=== PATIENT | male | born 1935 | race Caucasian/White ===

== ENCOUNTER 2017-04-21 12:43 | Emergency (ER) | payer MEDICARE ==
--- NOTE | 2017-04-21 12:52 | UC ---
Skin Complaint HPI - HPI Summary HPI Summary: 81 year old male presents with complains of left leg weeping wound. - History of Current Complaint Time Seen by Provider: 04/21/17 12:51 Stated Complaint: LFT LEG SKIN COMPLAINT - Allergy/Home Medications Allergies/Adverse Reactions: Allergies Allergy/AdvReac Type Severity Reaction Status Date / Time No Known Allergies Allergy Verified 01/14/16 10:23 Review of Systems Constitutional: Negative Skin: Other - left lower extremity weeping wound Eyes: Negative ENT: Negative Respiratory: Negative Cardiovascular: Negative Gastrointestinal: Negative Genitourinary: Negative Motor: Negative Neurovascular: Negative Musculoskeletal: Negative Neurological: Negative Psychological: Negative All Other Systems Reviewed And Are Negative: Yes PMH/Surg Hx/FS Hx/Imm Hx - Surgical History Surgical History: Yes Surgery Procedure, Year, and Place: cochlear implant 2001 [facility]-unsafe for mri . heart catherization 2003. TURP 2012. Hernia Type 3 Hiatal repair 1998. varicose vein stripping 1980. 2014 HYDROCEPHALUS SURGERY. shunt placement for Hydrocephalus 06-02-15 - Social History Alcohol Use: None Substance Use Type: None Smoking Status (MU): Unknown if Ever Smoked Type: Cigarettes Amount Used/How Often: LESS THEN 1 PPD, 5+ YEARS Have You Smoked in the Last Year: No When Did the Patient Quit Smoking/Using Tobacco: 1963 - Immunization History Most Recent Influenza Vaccination: 06/2015 Most Recent Tetanus Shot: WITHIN 10 YRS Most Recent Pneumonia Vaccination: 2012 Physical Exam Triage Information Reviewed: Yes Eye Exam: Normal ENT Exam: Normal Dental Exam: Normal Neck exam: Normal Neck: Positive: 1 Respiratory Exam: Normal Cardiovascular Exam: Normal Abdominal Exam: Normal Musculoskeletal Exam: Normal Neurological Exam: Normal Psychological Exam: Normal Skin: Positive: Other - left loweer extremity weeping wound Course/Dx - Diagnoses Provider Diagnoses: lower extremity weeping wound Discharge - Discharge Plan Condition: Stable Disposition: HOME Prescriptions: Cephalexin CAP* [Keflex CAP*] 500 mg PO TID #30 cap Patient Education Materials: Wound Infection (ED) Referrals: Preeti Henderson MD [Primary Care Provider] - As Soon As Possible
[2017-04-21 13:04] VITALS: BP 140/70
== END 2017-04-21 14:14 | disposition home or self-care (01) ==
LOC: UCCORT 12:43
DX: S81.802A Unspecified open wound, left lower leg, initial encounter (principal); X58.XXXA Exposure to other specified factors, initial encounter; Y92.9 Unspecified place or not applicable; Z87.891 Personal history of nicotine dependence
CPT/HCPCS: 81003; 99212; G0463

== ENCOUNTER 2017-04-23 17:40 | Emergency (ER) | payer MEDICARE ==
[2017-04-23 18:16] VITALS: BP 141/79
--- NOTE | 2017-04-23 18:59 | UC ---
Skin Complaint HPI - HPI Summary HPI Summary: Pt was seen here on 04/21/17 and was treated for weeping wound/cellulitis. pt c/ o of "wound burning" that began today after dressing change. Pt denies fever, chills, or worsening of erythema, discharge or tenderness at wound site. - History of Current Complaint Chief Complaint: UCSkin Time Seen by Provider: 04/23/17 18:38 Stated Complaint: LFT LEG RE-BANDAGE/RE-CHECK Hx Obtained From: Patient, Family/Assembler Tractor Onset/Duration: Gradual Onset, Lasting Days, Still Present Timing: Constant Onset Severity: Moderate Current Severity: Moderate Location: Discrete - left lower anterior leg, Character: Redness Aggravating: Touch, Other - unsure cause of "burning sensation" Alleviating: Unknown Associated Signs & Symptoms: Positive: Tenderness Related History: Other: - venous stasis - Allergy/Home Medications Allergies/Adverse Reactions: Allergies Allergy/AdvReac Type Severity Reaction Status Date / Time No Known Allergies Allergy Verified 04/23/17 17:54 Home Medications: Home Medications Lactobacillus [Probiotic] 1 cap PO DAILY 04/23/17 [History Confirmed 04/23/17] Review of Systems Constitutional: Negative Skin: Other - acute wound, cellulitis, weeping wound Eyes: Negative ENT: Negative Respiratory: Negative Cardiovascular: Other - history of afib, denies palpitaions or chest pain Gastrointestinal: Negative Genitourinary: Negative Motor: Other - generalized lower extremities Neurovascular: Negative Musculoskeletal: Decreased ROM - lower extremities, chronic, Edema - bilateral lower legs, chronic Neurological: Negative Psychological: Negative All Other Systems Reviewed And Are Negative: Yes PMH/Surg Hx/FS Hx/Imm Hx Previously Healthy: No Cardiovascular History: Hypertension, Atrial Fibrillation - Surgical History Surgical History: Yes Surgery Procedure, Year, and Place: cochlear implant 2001 [facility]-unsafe for mri . heart catherization 2003. TURP 2012. Hernia Type 3 Hiatal repair 1998. varicose vein stripping 1980. 2015 HYDROCEPHALUS SURGERY. shunt placement for Hydrocephalus 06-02-15 - Family History Known Family History: Positive: Cardiac Disease - Social History Occupation: Retired Lives: With Family Alcohol Use: None Substance Use Type: None Smoking Status (MU): Former Smoker Type: Cigarettes Amount Used/How Often: LESS THEN 1 PPD, 5+ YEARS Have You Smoked in the Last Year: No When Did the Patient Quit Smoking/Using Tobacco: 1962 - Immunization History Most Recent Influenza Vaccination: 06/2015 Most Recent Tetanus Shot: WITHIN 10 YRS Most Recent Pneumonia Vaccination: 2012 Physical Exam Triage Information Reviewed: Yes Appearance: Well-Appearing Vital Signs: Initial Vital Signs Temp 99.6 F 04/23/17 17:56 Pulse 107 04/23/17 17:56 Resp 20 04/23/17 17:56 BP 141/79 04/23/17 17:56 Pulse Ox 95 04/23/17 17:56 Vital Signs Reviewed: Yes Eye Exam: Normal ENT Exam: Normal ENT: Positive: Other: Neck exam: Normal Respiratory Exam: Normal Cardiovascular Exam: Other Cardiovascular: Positive: Tachycardia - pt states he goes in an Out of afib , pusle irregular,, Other: - regular irregualr rhythm Musculoskeletal Exam: Normal Neurological Exam: Normal Psychological Exam: Normal Skin Exam: Other - large "raw open wound" left lower leg, small amount of serous drainage, bilateral 1+ pitting edema. wound measure 13cm long, 9 cm wide. Course/Dx - Course Course Of Treatment: I changed the dressing and replaced the impregnated dressing of bismuth tribromonophenate bandage with vaseline gauze and covered with non stick telfa pads and wrapped in kerlix covered with gloria bandage. Pt's was given directions on how to change dressing and to keep wound care clinic appointment. Pt was instructed to go to the ER immediately if pt has c/o of fever or chills. Pt's verbalized understanding and agreed to plan of care. - Differential Diagnoses - Skin Complaint Differential Diagnoses: Cellulitis, Other - weeping wound reaction to dressing. sepsis - Diagnoses Provider Diagnoses: healing wound. reaction to dressing Discharge - Discharge Plan Condition: Stable Disposition: HOME Prescriptions: Wound Dressings [Vaseline Petrolatum Gauze] 1 pad TOPICAL DAILY #3 pad Patient Education Materials: Acute Wound Care (ED) Referrals: Preeti Henderson MD [Primary Care Provider] - As Soon As Possible Additional Instructions: Please follow up with your PCP and keep your appointment with the wound care clinic. Please change dressing daily with vaseline gauze,. Place over wound, then cover with nonstick pads, then wrap with kerlix and then cover with gloria bandage. If dressing becomes soiled, change more frequently.
== END 2017-04-23 19:09 | disposition home or self-care (01) ==
LOC: UCCORT 17:40
DX: S80.922S Unspecified superficial injury of left lower leg, sequela (principal); L03.116 Cellulitis of left lower limb; X58.XXXS Exposure to other specified factors, sequela; I87.8 Other specified disorders of veins; I10 Essential (primary) hypertension; I48.91 Unspecified atrial fibrillation; Z87.891 Personal history of nicotine dependence
CPT/HCPCS: 99212; G0463

== ENCOUNTER 2017-06-14 09:28 | Emergency (ER) | payer MEDICARE ==
--- NOTE | 2017-06-14 09:48 | UC ---
Eye Complaint HPI - HPI Summary HPI Summary: he awoke at 3am and had a snack. his vision was intact and he went back to bed at 4am. He awoke at 7am and had елена severe blurry vision. it has gradually been getting better. Last known time well was 4am. he had no other neurologic deficits such as confusion, slurred speech, facial droop. No cp or palpitations. Nothing makes it better or worse. He has a hx of cva. NO eye pain. He does use glasses. he has had cataract surgery. - History of Current Complaint Stated Complaint: BILATERAL EYE COMPLAINT Time Seen by Provider: 06/14/17 09:44 Hx Obtained From: Patient, Family/Magistrate Judge Onset/Duration: Still Present Timing: Constant Severity Initially: Severe Severity Currently: Moderate Alleviating Factor(s): Nothing Associated Signs And Symptoms: Positive: Vision Impairment Bilateral, Vision Impairment Right, Vision Impairment Left. Negative: Drainage (Clear), Drainage (Purulent), Fever, Swelling - Risk Factors Penetrating Injury Risk Factor: Negative Globe Rupture Risk Factors: Negative Acute Glaucoma Risk Factors: Negative - Allergies/Home Medications Allergies/Adverse Reactions: Allergies Allergy/AdvReac Type Severity Reaction Status Date / Time No Known Allergies Allergy Verified 04/23/17 17:54 PMH/Surg Hx/FS Hx/Imm Hx Previously Healthy: No - cva. - Surgical History Surgical History: Yes Surgery Procedure, Year, and Place: cochlear implant 2001 [facility]-unsafe for mri . heart catherization 2003. TURP 2012. Hernia Type 3 Hiatal repair 1998. varicose vein stripping 1980. 2014 HYDROCEPHALUS SURGERY. shunt placement for Hydrocephalus 06-02-15 - Family History Known Family History: Positive: Cardiac Disease - Social History Occupation: Retired Alcohol Use: None Substance Use Type: None Smoking Status (MU): Unknown if Ever Smoked Type: Cigarettes Amount Used/How Often: LESS THEN 1 PPD, 5+ YEARS Have You Smoked in the Last Year: No When Did the Patient Quit Smoking/Using Tobacco: 1962 - Immunization History Most Recent Influenza Vaccination: 06/2015 Most Recent Tetanus Shot: WITHIN 10 YRS Most Recent Pneumonia Vaccination: 2012 Review of Systems Eyes: Blurred Vision All Other Systems Reviewed And Are Negative: Yes Physical Exam Triage Information Reviewed: Yes Appearance: No Pain Distress, Well-Nourished Vital Signs Reviewed: Yes Eyes: Positive: Conjunctiva Clear. Negative: Conjunctiva Inflamed, Discharge ENT Exam: Normal Neck exam: Normal Neck: Positive: Supple, Nontender, No Lymphadenopathy Respiratory Exam: Normal Cardiovascular Exam: Other - irregular. Cardiovascular: Positive: No Murmur, Brisk Capillary Refill Abdominal Exam: Normal Musculoskeletal Exam: Normal Neurological Exam: Other - neg pronator drift. CN III-XII intact. Neurological: Positive: Alert. Negative: Lethargic, Unresponsive, Abnormal Muscle Tone Psychological: Positive: Normal Response To Family Skin Exam: Normal Eye Complaint Course/Dx - Course Course Of Treatment: likely cva. It is now 5hours and 53 min from last time well. LIkely he is not a candidate surgical intervention and definitely not a candidate for thrombolytics. He also is on eloquis. we will immediately transfer to ED and they request [facility]. - Differential Dx/Diagnosis Differential Diagnosis/HQI/PQRI: Corneal Abrasion, Detached Retina, Foreign Body , Glaucoma, Hyphema, Keratitis, Penetrating Injury, Periorbital Cellulitis, Orbital Cellulitis, Retinal Artery Occlusion, Uveitis Provider Diagnoses: vision loss. cva. - Physician Notification/Consults Discussed Patient Care With: Dr. Rosado who states they do not have neurology bedside consult. - dr godoy accepts at [place]. Discharge - Discharge Plan Condition: Guarded Disposition: TRANS HIGHER LVL OF CARE FAC
[2017-06-14 10:49] VITALS: BP 121/78
== END 2017-06-14 10:40 | disposition short-term general hospital (02) ==
LOC: UCCORT 09:28
DX: H54.7 Unspecified visual loss (principal); Z86.73 Personal history of transient ischemic attack (TIA), and cerebral infarction without residual deficits
CPT/HCPCS: 93005; 99213; G0463

== ENCOUNTER 2017-06-14 11:28 | Inpatient (IN) | payer MEDICARE ==
[2017-06-14 12:40] LABS: Hematocrit 44 % (42-52); Hemoglobin 14.8 g/dl (14.0-18.0); Mean Corpuscular HGB Conc 34 g/dl (31-36); Mean Corpuscular Hemoglobin 29 pg (27-31); Mean Corpuscular Volume 88 fL (80-94); Mean Platelet Volume 11 um3 (7.4-10.4); Red Blood Count 5.02 10^6/ul (4.0-5.4); Red Cell Distribution Width 14 % (10.5-15); White Blood Count 10.7 10^3/ul (3.5-10.8)
--- NOTE | 2017-06-14 13:12 | RAD ---
HISTORY: The visualized parenchyma resolved COMPARISONS: February 06, 2017 TECHNIQUE: Multiple contiguous axial CT scans were obtained of the head without intravenous contrast. FINDINGS: Evaluation is limited secondary to metallic streak artifact from a cochlear implant HEMORRHAGE/INFARCT: There is no hemorrhage or acute infarct. MASSES/SHIFT: There is no mass or shift. EXTRA-AXIAL SPACES: There are no extra-axial fluid collections. SULCI AND VENTRICLES: The left frontal ventricular catheter is noted within the body of the left lateral ventricle. There is mild stable ventriculomegaly. CEREBRUM: There is encephalomalacia of the left periatrial white matter, stable. BRAINSTEM: There are no focal parenchymal abnormalities. CEREBELLUM: There are no focal parenchymal abnormalities. VESSELS: The vessels are grossly normal. PARANASAL SINUSES: The paranasal sinuses are clear. ORBITS: The orbits are unremarkable. BONES AND SOFT TISSUE: The patient is status post right mastoidectomy. A cochlear implant is noted. OTHER: None IMPRESSION: NO ACUTE INTRACRANIAL PATHOLOGY. NO SIGNAL CHANGE COMPARED TO FEBRUARY 06, 2017
[2017-06-14 13:16] LABS: Albumin 3.8 g/dL (3.2-5.2); BUN/Creatinine Ratio 22.5 (8-20); Calcium 9.9 mg/dL (8.6-10.3); EGFR African American 105.8 (>60); EGFR Non-African American 82.2 (>60); Globulin 2.9 g/dL (2-4); Potassium 3.4 mmol/L (3.5-5.0); Total Bilirubin 0.4 mg/dL (0.2-1.0); Total Protein 6.7 g/dL (6.4-8.9)
[2017-06-14 13:21] LABS: Urine Bacteria Absent (Absent)
[2017-06-14 13:22] LABS: Urine Bilirubin Negative (Negative); Urine Glucose 3+(>=500 mg/dL) (Negative); Urine Nitrite Negative (Negative)
[2017-06-14] MEDS ORDERED: Labetalol IV* 5 MG/ML 20 ML VIAL IV PUSH PRN (14:20)
[2017-06-14] MEDS ORDERED: Iodixanol* (CONTRAST) 320 MG/ML 100 ML SDV IV ONE (14:27)
[2017-06-14] MEDS: Aspirin EC Low Dose* 81 MG TAB.EC PO SCH (14:38)
[2017-06-14] MEDS ORDERED: Ondansetron INJ* 2 MG/ML VIAL IV PRN (15:10)
[2017-06-14] MEDS ORDERED: Dextrose 50% Syringe 50 ML* 25 GM/50 ML SYRINGE IV PUSH PRN (15:10)
[2017-06-14] MEDS ORDERED: ALPRAZolam TAB* 0.25 MG PO PRN (15:11)
--- NOTE | 2017-06-14 15:25 | ED ---
Manda Chong Alfonso, scribed for Erin Ritter MD on 06/14/17 at 1145 . Neurological HPI - HPI Summary HPI Summary: This patient is an 82 year old M BIBA to [facility] accompanied by son and with a chief complaint of a FND since 0700. He woke at 0300 to use the restroom , and felt normal. At 0700 he was unable to see anything visually for approximately an hour. He is currently able to see. The patient rates the pain 0 /10 in severity. Symptoms aggravated by nothing. Symptoms alleviated by spontaneous resolution. Son reports bilateral UE pain. Son denies slurred speech , and weakness. PMHx includes cochlear implant, HTN, HLD, and DM. - History of Current Complaint Stated Complaint: STROKE LIKE SYMPTOMS Time Seen by Provider: 06/14/17 11:34 Hx Obtained From: Patient, Family/Weatherseal Technician - Son Onset/Duration: Sudden Onset, Started hours ago, Resolved Timing: Constant Current Severity: None Pain Intensity: 0 Pain Scale Used: 0-10 Numeric Character: Other: - bilateral UE pain. Son denies slurred speech, and weakness. Aggravating: Nothing Alleviating: Spontanious Resolution - Additional Pertinent History Primary Care Physician: [id number] - Allergy/Home Medications Allergies/Adverse Reactions: Allergies Allergy/AdvReac Type Severity Reaction Status Date / Time No Known Allergies Allergy Verified 06/14/17 11:41 PMH/Surg Hx/FS Hx/Imm Hx Endocrine/Hematology History: Reports: Hx Diabetes Denies: Hx Thyroid Disease Cardiovascular History: Reports: Hx Hypercholesterolemia, Hx Hypertension, Hx Peripheral Vascular Disease, Other Cardiovascular Problems/Disorders - heart cath 2003 Denies: Hx Congestive Heart Failure, Hx Pacemaker/ICD Respiratory History: Reports: Hx Sleep Apnea Denies: Hx Asthma, Hx Chronic Obstructive Pulmonary Disease (COPD) GI History: Reports: Hx Hiatal Hernia - TYPE 3 , SURGERY 1998 Denies: Hx Ulcer History: Reports: Hx Benign Prostatic Hyperplasia, Other Problems/ Disorders - INCONTINENCE URINE TURP Denies: Hx Renal Disease Musculoskeletal History: Reports: Hx Arthritis, Other Musculoskeletal History - Tremors Sensory History: Reports: Hx Contacts or Glasses, Hx Deafness - cochlear implant , Hx Hearing Aid - cochlear implant, Hx Hearing Problem Denies: Hx Cataracts, Hx Eye Injury, Hx Eye Prosthesis, Hx Glaucoma, Hx Legally Blind, Hx Macular Degeneration, Hx Vision Problem, Other Sensory Impairments Opthamlomology History: Reports: Hx Contacts or Glasses Denies: Hx Cataracts, Hx Eye Injury, Hx Eye Prosthesis, Hx Glaucoma, Hx Legally Blind, Hx Macular Degeneration, Hx Vision Problem, Other Sensory Impairments Neurological History: Reports: Hx Dementia, Other Neuro Impairments/Disorders - GAIT DISTURBANCE, ESSENTIAL TREMOR, INHP NORMAL PRESSURE HYDROCEPHALUS. Psychiatric History: Denies: Hx Anxiety, Hx Depression, Hx Panic Disorder - Surgical History Surgery Procedure, Year, and Place: cochlear implant 2001 [facility]-unsafe for mri . heart catherization 2003. TURP 2012. Hernia Type 3 Hiatal repair 1998. varicose vein stripping 1980. 2015 HYDROCEPHALUS SURGERY. shunt placement for Hydrocephalus 06-02-15 Hx Anesthesia Reactions: No Infectious Disease History: No Infectious Disease History: Denies: Hx Hepatitis, Hx Human Immunodeficiency Virus (HIV), Traveled Outside the [place] in Last 30 Days - Family History Known Family History: Positive: Cardiac Disease, Diabetes - Social History Alcohol Use: None Substance Use Type: Reports: None Smoking Status (MU): Unknown if Ever Smoked Type: Cigarettes Amount Used/How Often: LESS THEN 1 PPD, 5+ YEARS Have You Smoked in the Last Year: No Review of Systems Positive: Other - Bilateral UE pain Neurological: Other - FND (vision loss); negative slurred speech and weakness All Other Systems Reviewed And Are Negative: Yes Physical Exam Triage Information Reviewed: Yes Vital Signs On Initial Exam: Initial Vitals Temp Pulse Resp BP Pulse Ox 96.8 F 72 15 136/71 97 06/14/17 11:35 06/14/17 11:35 06/14/17 11:35 06/14/17 11:35 06/14/17 11:35 Vital Signs Reviewed: Yes Appearance: Positive: Well-Appearing, No Pain Distress Skin: Positive: Warm, Skin Color Reflects Adequate Perfusion, Dry, Other - A few very superficial ulcers and one large superficial well healing 5 cm in circumference ulcer at lower extremities. Eyes: Positive: EOMI, FRANCO ENT: Positive: Pharynx normal, TMs normal Neck: Positive: Supple, Nontender Respiratory/Lung Sounds: Positive: Clear to Auscultation, Breath Sounds Present. Negative: Rales, Rhonchi, Wheezes Cardiovascular: Positive: RRR, Other - No gallop. Negative: Murmur, Rub Abdomen Description: Positive: Nontender, Soft, Other: - No rebound. Negative: Distended, Guarding Bowel Sounds: Positive: Present Musculoskeletal: Positive: Strength/ROM Intact, Other - 2+ edema. Good pedal pulses. Neurological: Positive: Sensory/Motor Intact, Alert, Oriented to Person Place, Time, CN Intact II-III - 2-12 Psychiatric: Positive: Affect/Mood Appropriate - [place] Coma Scale Best Eye Response: 4 - Spontaneous Best Motor Response: 6 - Obeys Commands Best Verbal Response: 5 - Oriented Diagnostics - Vital Signs Vital Signs Temp Pulse Resp BP Pulse Ox 06/14/17 11:35 96.8 F 72 15 136/71 97 - Laboratory Lab Results: Lab Results 06/14/17 06/14/17 06/14/17 Range/Units 12:30 12:30 12:30 WBC 10.7 (3.5-10.8) 10^3/ul RBC 5.02 (4.0-5.4) 10^6/ul Hgb 14.8 (14.0-18.0) g/dl Hct 44 (42-52) % MCV 88 (80-94) fL MCH 29 (27-31) pg MCHC 34 (31-36) g/dl RDW 14 (10.5-15) % Plt Count 159 (150-450) 10^3/ul MPV 11 H (7.4-10.4) um3 Neut % (Auto) 59.9 (38-83) % Lymph % (Auto) 24.8 L (25-47) % [place] % (Auto) 12.7 H (1-9) % Eos % (Auto) 1.4 (0-6) % Baso % (Auto) 1.2 (0-2) % Absolute Neuts (auto) 6.4 (1.5-7.7) 10^3/ul Absolute Lymphs (auto) 2.6 (1.0-4.8) 10^3/ul Absolute Monos (auto) 1.4 H (0-0.8) 10^3/ul Absolute Eos (auto) 0.1 (0-0.6) 10^3/ul Absolute Basos (auto) 0.1 (0-0.2) 10^3/ul Absolute Nucleated RBC 0 10^3/ul Nucleated RBC % 0 INR (Anticoag Therapy) 1.25 H (0.89-1.11) Sodium 133 (133-145) mmol/L Potassium 3.4 L (3.5-5.0) mmol/L Chloride 98 L (101-111) mmol/L Carbon Dioxide 30 (22-32) mmol/L Anion Gap 5 (2-11) mmol/L BUN 20 (6-24) mg/dL Creatinine 0.89 (0.67-1.17) mg/dL Est GFR ( Amer) 105.8 (>60) Est GFR (Non-Af Amer) 82.2 (>60) BUN/Creatinine Ratio 22.5 H (8-20) Glucose 232 H (70-100) mg/dL Lactic Acid (0.5-2.0) mmol/L Calcium 9.9 (8.6-10.3) mg/dL Total Bilirubin 0.40 (0.2-1.0) mg/dL AST 11 L (13-39) U/L ALT 11 (7-52) U/L Alkaline Phosphatase 78 (34-104) U/L Troponin I 0.00 (<0.04) ng/mL Total Protein 6.7 (6.4-8.9) g/dL Albumin 3.8 (3.2-5.2) g/dL Globulin 2.9 (2-4) g/dL Albumin/Globulin Ratio 1.3 (1-3) Urine Color Urine Appearance Urine pH (5-9) Ur Specific [place] (1.010-1.030) Urine Protein (Negative) Urine Ketones (Negative) Urine Blood (Negative) Urine Nitrate (Negative) Urine Bilirubin (Negative) Urine Urobilinogen (Negative) Ur Leukocyte Esterase (Negative) Urine WBC (Auto) (Absent) Urine RBC (Auto) (Absent) Ur Squamous Epith Cells (Absent) Urine Bacteria (Absent) Hyaline Casts (Absent) Urine Glucose (Negative) Urine Ascorbic Acid (Negative) 06/14/17 06/14/17 Range/Units 12:30 13:00 WBC (3.5-10.8) 10^3/ul RBC (4.0-5.4) 10^6/ul Hgb (14.0-18.0) g/dl Hct (42-52) % MCV (80-94) fL MCH (27-31) pg MCHC (31-36) g/dl RDW (10.5-15) % Plt Count (150-450) 10^3/ul MPV (7.4-10.4) um3 Neut % (Auto) (38-83) % Lymph % (Auto) (25-47) % [place] % (Auto) (1-9) % Eos % (Auto) (0-6) % Baso % (Auto) (0-2) % Absolute Neuts (auto) (1.5-7.7) 10^3/ul Absolute Lymphs (auto) (1.0-4.8) 10^3/ul Absolute Monos (auto) (0-0.8) 10^3/ul Absolute Eos (auto) (0-0.6) 10^3/ul Absolute Basos (auto) (0-0.2) 10^3/ul Absolute Nucleated RBC 10^3/ul Nucleated RBC % INR (Anticoag Therapy) (0.89-1.11) Sodium (133-145) mmol/L Potassium (3.5-5.0) mmol/L Chloride (101-111) mmol/L Carbon Dioxide (22-32) mmol/L Anion Gap (2-11) mmol/L BUN (6-24) mg/dL Creatinine (0.67-1.17) mg/dL Est GFR ( Amer) (>60) Est GFR (Non-Af Amer) (>60) BUN/Creatinine Ratio (8-20) Glucose (70-100) mg/dL Lactic Acid 1.8 (0.5-2.0) mmol/L Calcium (8.6-10.3) mg/dL Total Bilirubin (0.2-1.0) mg/dL AST (13-39) U/L ALT (7-52) U/L Alkaline Phosphatase (34-104) U/L Troponin I (<0.04) ng/mL Total Protein (6.4-8.9) g/dL Albumin (3.2-5.2) g/dL Globulin (2-4) g/dL Albumin/Globulin Ratio (1-3) Urine Color Yellow Urine Appearance Cloudy Urine pH 5 (5-9) Ur Specific [place] 1.025 (1.010-1.030) Urine Protein 1+(30 mg/dl) H (Negative) Urine Ketones Negative (Negative) Urine Blood Negative (Negative) Urine Nitrate Negative (Negative) Urine Bilirubin Negative (Negative) Urine Urobilinogen Negative (Negative) Ur Leukocyte Esterase 2+ H (Negative) Urine WBC (Auto) 1+(6-10/hpf) H (Absent) Urine RBC (Auto) 2+(6-10/hpf) H (Absent) Ur Squamous Epith Cells Present H (Absent) Urine Bacteria Absent (Absent) Hyaline Casts Present H (Absent) Urine Glucose 3+(>=500 mg/dl) H (Negative) Urine Ascorbic Acid * H (Negative) Result Diagrams: 06/14/17 12:30 06/14/17 12:30 Lab Statement: Any lab studies that have been ordered have been reviewed, and results considered in the medical decision making process. - CT Brain CT Interpretation Completed By: Radiologist - NO ACUTE INTRACRANIAL PATHOLOGY. NO SIGNAL CHANGE COMPARED TO FEBRUARY 06, 2017. ED physician has reviewed this radiology report and agrees. CTA Head CT Interpretation Completed By: Radiologist - EKG 1233 Cardiac Rate: NL - BPM 69 EKG Rhythm: Atrial Fibrillation EKG Comparison: Other - Diffuse T-wave flattening new compared to 08/27/15 NIH Scale - NIH Scale Level of Consciousness: Alert/Keenly Responsive Ask Patient the Month and His/Her Age: Both Correct Ask Pt to Open/Close Eyes and Packaging Mechanic/Release Non-Paretic Hand: Both Correctly Best Gaze (Only Horizontal Eye Movement): Normal Visual Field Testing: No Visual Loss Facial Paresis-Pt to Smile & Close Eyes or Grimace Symmetry: Normal/Symmetrical Motor Function - Right Arm: No Drift-Holds 10 Seconds Motor Function - Left Arm: No Drift-Holds 10 Seconds Motor Function - Right Leg: No Drift-Holds 10 Seconds Motor Function - Left Leg: No Drift-Holds 10 Seconds Limb Ataxia-Must be out of Proportion to Weakness Present: Absent Sensory (Use Pinprick to Test Arms/Legs/Trunk/Face): Normal Best Language (Describe Picture, Name Items): No Aphasia Dysarthria (Read Several Words): Normal Extinction and Inattention: No Abnormality Total Score: 0 Course/Dx - Course Course Of Treatment: 82 yo male with visual field deficit starting at 3am until 4am. Pt seen by neuro and found to have a cont'd visual field deficit being admitted to medicine - Diagnoses Provider Diagnoses: Visual field loss following cerebrovascular accident - Physician Notifications Discussed Care Of Patient With: Veronica Graf Time Discussed With Above Provider: 13:26 Instructed by Provider To: Other - Consulted Dr. Graf (hospitalist) who agrees to admit. Consulted Dr. Bosch (neurologist) at 1330 who will see the patient in the ED. Discharge - Discharge Plan Condition: Stable Disposition: ADMITTED TO [facility] Referrals: Preeti Henderson MD [Primary Care Provider] - The documentation as recorded by the Manda drummond Alfonso accurately reflects the service I personally performed and the decisions made by Stone fajardo Justine, MD.
--- NOTE | 2017-06-14 15:34 | RAD ---
HISTORY: Stroke COMPARISONS: Head CT dated June 14, 2017, CTA dated August 27, 2015 TECHNIQUE: Multiple contiguous axial CT scans were obtained of the head and neck After the administration of nonionic intravenous contrast timed to the systemic arterial phase of contrast enhancement. Coronal and sagittal multiplanar reformations are submitted for review. Multiple 3-D maximum intensity projection reconstructions are also submitted for review. FINDINGS: CTA NECK: AORTIC ARCH: There is a normal three-vessel branching pattern of the aortic arch. There is no ostial or proximal stenosis of the cephalic great vessels. RIGHT VERTEBRAL ARTERY: The right vertebral artery is patent along its course, without stenosis. LEFT VERTEBRAL ARTERY: The left vertebral artery is patent along its course, without stenosis. DOMINANCE: The left vertebral artery is dominant. RIGHT COMMON CAROTID ARTERY: The right common carotid artery is patent. The right carotid bifurcation occurs at C4-C5 RIGHT INTERNAL CAROTID ARTERY: There is no right internal carotid artery stenosis by NASCET criteria. RIGHT EXTERNAL CAROTID ARTERY: The right external carotid artery is unremarkable. LEFT COMMON CAROTID ARTERY: The left common carotid artery is patent. The left carotid bifurcation occurs at C3-C4 LEFT INTERNAL CAROTID ARTERY: There is no left internal carotid artery stenosis by NASCET criteria. LEFT EXTERNAL CAROTID ARTERY: The left external carotid artery is unremarkable. VENOUS CIRCULATION: The venous system is unremarkable. SALIVARY GLANDS: The parotid glands, submandibular glands, sublingual glands are normal. NASAL CAVITY/NASOPHARYNX: The nasal cavity and nasopharynx are normal. ORAL CAVITY/OROPHARYNX: The oral cavity is obscured by streak artifact from dental amalgam. The visualized oral cavity and oropharynx are unremarkable. LARYNGEAL APPARATUS/HYPOPHARYNX: The laryngeal apparatus and hypopharynx are normal. UPPER AIRWAY/UPPER ESOPHAGUS: The visualized upper airway and esophagus are normal. LUNG APICES: Again noted are subcentimeter short axis mediastinal lymph nodes THYROID GLAND: The thyroid gland is normal. LYMPH NODES: There is no lymphadenopathy by size criteria. BONES AND SOFT TISSUES: Mild degenerative changes are noted CTA HEAD: INTRACRANIAL CIRCULATION: There is no aneurysm, vascular malformation, occlusion, or stenosis of the visualized intracranial circulation. The vertebrobasilar system is tortuous. The anterior communicating artery complex is clear. Bilateral posterior communicating arteries are identified. VENOUS CIRCULATION: The venous system is unremarkable. PERFUSION: There is no obvious parenchymal perfusion deficit. HEMORRHAGE/INFARCT: There is no hemorrhage or acute infarct. MASSES/SHIFT: There is no mass or shift. EXTRA-AXIAL SPACES: There are no extra-axial fluid collections. SULCI AND VENTRICLES: A ventricular catheter is noted from a left frontal craniotomy approach. There is mild ventriculomegaly, stable CEREBRUM: There are no focal parenchymal abnormalities. BRAINSTEM: There are no focal parenchymal abnormalities. CEREBELLUM: There are no focal parenchymal abnormalities. PARANASAL SINUSES: The paranasal sinuses are clear. The patient is status post right mastoidectomy. ORBITS: The orbits are unremarkable. BONES AND SOFT TISSUE: No bone or soft tissue abnormalities are noted. OTHER: A cochlear implant is noted on the right IMPRESSION: 1. NO INTERNAL CAROTID ARTERY STENOSIS BY NASCET CRITERIA. 2. NO ANEURYSM, VASCULAR MALFORMATION, OCCLUSION, OR STENOSIS OF THE VISUALIZED INTRACRANIAL CIRCULATION. CPT II Codes: 3100F
[2017-06-14] MEDS ORDERED: Potassium Chlor TAB* 20 MEQ TAB.ER PO ONE (15:45)
[2017-06-14 15:46] LABS: TSH (Thyroid Stimulating Horm) 2.53 mcIU/mL (0.34-5.60)
[2017-06-14 15:52] LABS: Free T4 1.26 ng/dL (0.61-1.12)
[2017-06-14 15:58] LABS: Folate 18.97 ng/mL (>3.99)
[2017-06-14] MEDS: Insulin LISPRO* 1 UNITS UNIT SUBCUT SCH (17:20)
[2017-06-14] MEDS: Docusate CAP* 100 MG PO SCH (17:21)
[2017-06-14] MEDS: Primidone TAB(*) 50 MG PO SCH (17:21)
[2017-06-14] MEDS: Nystatin TOP POWDER* 15 GM BTL TOPICAL SCH ×2 (17:26→20:23)
[2017-06-14] MEDS: Metoprolol Tartrate IV* 1 MG/ML 5 ML VIAL IV PRN (19:40)
[2017-06-14] MEDS: Acetaminophen TAB* 325 MG PO PRN (20:22)
[2017-06-14] MEDS: Tamsulosin CAP* 0.4 MG PO SCH (20:23)
[2017-06-14] MEDS ORDERED: Metoprolol Tartrate TAB* 25 MG PO SCH (21:00)
--- NOTE | 2017-06-14 22:34 | CONS ---
CONSULTATION REPORT: DATE OF CONSULT: 06/14/17 CURRENT LOCATION: Emergency department. REASON FOR CONSULT: Vision loss acutely. HISTORY OF PRESENT ILLNESS: Ms. 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 He has had cardiac arrhythmia dating back to per the patient's and he has been on Coumadin in the past, recently switched to Eliquis. He does have baseline dementia, has preserved long-term memory, but has had difficulty with short-term memory. Initially, before his shunt, he had difficulty walking but the family states that that improved after the shunt, although his memory did not improve much. They deny any recent bladder or bowel incontinence. Today, at sometime around 7 a.m., he developed acute onset of vision loss. His states that he woke up about 3 in the morning and had a snack, went back to bed , and when he woke up around 7, he told his that he could not see. She states that she moved her hands in front of his eyes. She pointed at his eyes in different directions and he did not blink. He states that he had complete vision loss. This lasted anywhere from 30 minutes to an hour. He denies seeing any scotoma or bright lights. He states that he saw "black." He has a history of some mild headaches and currently has a headache behind the right eye , but did not have a headache at the time the symptoms developed. His notes no speech difficulties, no swallowing difficulties, no facial droop, no eye pain at that time. 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 He had no nausea or vomiting. His notes that he was not overly somnolent. He denied any chest pain, any shortness of breath, dyspnea on exertion. He has otherwise been in his usual state of health for the last few weeks. His family notes that about 6 weeks ago , he was sitting talking in the chair, when he suddenly "went out." At that time, his face went blank, his eyes rolled into his head, and for about an hour , he sat there unresponsive. The family states that just as suddenly as he went out, he came back around and was confused about what had happened, but had no ill effects afterwards. At that time, the family reports no other illnesses , no chest pain, no palpitations. He has no history of seizures in the past. There were no generalized tonic-clonic movements. There was no tongue biting, or bladder or bowel incontinence. He has not had any similar events since that time. Today in the ER, he states that his vision has completely recovered and he feels that he has no further vision loss. He is currently asymptomatic except for a mild headache behind his right eye. PAST MEDICAL HISTORY: As noted above. In addition, he has essential tremor and is on Mysoline and a beta cinthia for that. He has a history of diabetic retinopathy, history of basal cell carcinoma removed from the right forehead. He has BPH as well. He also has a hiatal hernia. PAST SURGICAL HISTORY: Includes a cochlear implant in 2001, heart catheterization in 2003, prostate biopsy in 2003, colonoscopy in 2006, colonoscopy in 2009, a TURP in 2012, colonoscopy in 2012, had some hospitalizations for chest heaviness in 2013. He had the shunt placed in May of 2015, cataract surgery in June of 2015, and a stroke on . CURRENT MEDICATIONS: At home, include: 1. Humalog 75/25, 30 units in the morning, 25 units at night. 2. Metformin 500 mg 1 in the morning and 1 at noon and 1 at night. 3. Oxybutynin 10 mg at night. 4. Primidone 50 mg 1 in the morning, 2 at night. 5. Simvastatin 20 mg 1 at night. 6. Metoprolol 25 mg 1 in the morning and 1 at night. 7. Alprazolam 0.25 mg at night. 8. Fluoxetine 20 mg 1 in the morning. 9. Tamsulosin 0.4 mg 1 at night. 10. Hydrochlorothiazide 25 mg 1 in the morning. 11. PreserVision 1 in the morning. 12. Vitamin D 1000 mg in the morning. 13. Stool softener 100 mg at night. 14. Proscar 5 mg in the morning. 15. Eliquis 5 mg in the morning and 5 mg at night. 16. Metoclopramide 10 mg in the morning. ALLERGIES: No known drug allergies. FAMILY HISTORY: His sons are at the bedside and state that his mom had 5 strokes and early. His father had a heart attack and he has a son with cardiovascular disease. SOCIAL HISTORY: He worked in a factory. It was because of the loud noises that he went deaf. There is no tobacco use recently. He smoked back in the 1960s. No alcohol use. REVIEW OF SYSTEMS: Fourteen-organ systems was done, as noted above. Also, some issues with constipation. He has had no musculoskeletal aches or pains. No recent illnesses, fevers, chills. He did have the episode 6 weeks ago when he became somewhat diaphoretic, but there was no chest pain at that time. He otherwise denies any symptoms. PHYSICAL EXAM: Vital Signs: Blood pressure 156/137 to 123/72, heart rate of 65 , respiratory rate of 12, satting in the mid upper 90s. In general, he is a well- nourished, well-developed gentleman, sitting in his hospital bed. His family is around him at the bedside. He is pleasant, well dressed, well groomed. HEENT: He is normocephalic. He has evidence of a prior FIBERGLASS QUALITY TECHNICIAN shunt placement on the left parietal region. He also has a cochlear implant on the right. It is currently in place. His mucous membranes are moist. His oropharynx is clear. His nares are patent. His neck is supple. No thyromegaly. No carotid bruits. No meningismus. Chest: Clear to auscultation bilaterally. Cardiovascular: Irregularly irregular without murmurs. Abdomen: Obese, nontender. Extremities: No clubbing or cyanosis. He has 1 to 2+ edema in the feet to the shins bilaterally. Skin is warm and dry. On neurologic examination, he is awake, alert, and oriented x3 to person and hospital. He thought he was in [place]. He is not oriented to date, day of the week, month, or year. His speech is fluent. There is on dysarthria. Cranial Nerves: Pupils are equally round and reactive to light. His extraocular muscles were intact. Visual pike appear to have right upper quadrant anopsia to testing. His face is symmetric. His sensation is intact. His hearing is severely diminished. He has a cochlear implant in place and can hear some. His palate is symmetric. His tongue is midline. His sternocleidomastoid and trapezius are 5/5. Motor Exam: He spontaneously moves all extremities antigravity, 5/5. There is no drift. Tone and bulk are both normal. DTRs are 1+ and symmetric in the upper extremities, 1+ at the patella bilaterally, 1+ at the ankles. He withdraws to Babinski. Sensation is intact to light touch and pinprick throughout. There are no deficits noted. [id number] and rapid alternating movements are intact with some mild intention tremor bilaterally. There is no resting tremor noted. Gait was not tested at this time. DIAGNOSTIC STUDIES/LAB DATA: Include a brain CT, which I reviewed shows no acute intracranial pathology. No change compared to 02/06/17. In addition, he had an electrocardiogram, shows atrial fibrillation. His lab work, CBC with diff, essentially normal. INR of 1.25. Potassium of 3.4 , chloride of 98, BUN and creatinine ratio of , glucose is 232. AST of 11. It appears that he had a brain CT done, on 02/06/17, for some unsteadiness and dementia. At that time, it showed postoperative changes. No significant change noted since previous exam of 08/29/15. The left ventricular shunt remaining in place in the left frontal horn. ASSESSMENT AND PLAN: Mr. Richards is a very nice 82-year-old gentleman with a history of atrial fibrillation, on Eliquis, with a prior stroke in August of 2015; a history of normal pressure hydrocephalus, with ventriculoperitoneal shunt placement in May of 2015; a history of multiple risk factors including atrial fibrillation, hypertension, hyperlipidemia, diabetes, and history of deafness, with cochlear implant on the right, who presents to the hospital today with acute onset of what he describes as complete vision loss in all visual pike. This was confirmed by his . It subsequently resolved after about 30 minutes. By the time he arrived in the ER, his symptoms had completely resolved. On examination, he was found to have a right upper quadrant anopsia and I suspect that he suffered a left occipital lobe stroke, the size of which is unknown at this point as he cannot have an MRI. The plan is to admit him. We will hold his Eliquis for 1 to 2 days and start him on aspirin. Plan to repeat a CT scan in the morning. We did discuss the risks and benefits of maintaining Eliquis versus stopping Eliquis. We discussed the fact that we cannot estimate the size of the stroke at this point based on the CT scan and that a repeat CT scan tomorrow may show us better how large the stroke is. At this point though, I think the risks of bleeding or hemorrhagic conversion outweigh the risks of embolic stroke from stopping his Eliquis. If we find a thrombus in his heart from echocardiogram, this obviously may change the equation, but for now, we will hold the Eliquis. We are going to check labs to rule out reversible causes of stroke, plan to obtain a CT angiogram of the head and neck. We will allow for some permissive hypertension. At this point, I have written for labetalol p.r.n. We will get Physical Therapy to work with him as well. He reports no problem swallowing, can do a bedside swallowing eval, and then start a diet. We will need to control his blood sugars tightly at this point. As far as his ventriculoperitoneal shunt is concerned, it appears to be functioning normally. No acute issues with that at this time. His cochlear implant appears to be functioning normally as well. We will continue his other medications as an inpatient. Check his fasting lipids in the morning and adjust his statin accordingly. I will continue to follow him closely and make further recommendations as necessary. Thank you for the opportunity to participate in his care. [id number]/[facility] #: [id number] BRENNAN
[2017-06-14] MEDS ORDERED: Metoprolol Tartrate TAB* 25 MG PO ONE (23:54)
--- NOTE | 2017-06-15 01:01 | HP ---
CC: Dr. Henderson; Dr. Bosch * HISTORY AND PHYSICAL: DATE OF ADMISSION: 06/14/17 PRIMARY CARE PROVIDER: Dr. Henderson. ATTENDING PHYSICIAN WHILE IN THE HOSPITAL: Dr. Veronica Jorge * (report dictated by Jean-Paul Ventura NP). CONSULTING NEUROLOGIST: Dr. Bosch. CHIEF COMPLAINT: Visual disturbance. HISTORY OF PRESENT ILLNESS: Mr. Richards is an 82-year-old male patient, he has a history of diabetes, tremors, hyperlipidemia, hypertension, CVA, AFib, BPH, hiatal hernia, history of hydrocephalus, dementia, and ROTEGA who does not wear a mask at night. He comes into the ER today stating, again this history is difficult to obtain because of the history of dementia and the fact that he has got a cochlear implant and he is very hard of hearing, but according to the family and the patient, he woke up around 3 to 4 o'clock this morning, had a snack, was doing okay, but then around 8:30 to 8 o'clock, had an episode where he could not see both eyes. He says he was just seeing black, it was like a black out, lasting for about 30 minutes to an hour. It was getting progressively better, but the was still concerned and called her PCP, who deferred her to the Urgent Care and then from Urgent Care, the patient was sent into the emergency room for evaluation. There were no reports of weakness to one side, no reports of slurring of the words, no reports of facial drooping, and no reports of recent gait disturbances or dizziness. I did discuss with the family if there have been any reports of abdominal pain, nausea, vomiting, or any URI symptoms, and they denied. There was no chest pain. They said he has been taking his medications right along. He came into the ER, was evaluated. There was concern because of the visual change. This may represent TIA versus CVA, symptoms now resolved and the hospitalist service was asked to evaluate for admission. PAST MEDICAL HISTORY: Significant for: 1. Diabetes. 2. Tremors. 3. Hyperlipidemia. 4. Hypertension. 5. CVA. 6. AFib. 7. BPH. 8. Hiatal hernia. 9. History of hydrocephalus. 10. Dementia. 11. ORTEGA. PAST SURGICAL HISTORY: 1. The patient has had a DRY LUMBER GRADER shunt placement. 2. Cochlear implant. 3. He has had a heart catheterization. 4. TURP. 5. Cataracts. MEDICATIONS: Home meds according to the list they provided includes: 1. Metformin 500 mg p.o. t.i.d. 2. Vaseline gauze 1 pad topically daily. 3. Flomax 0.4 mg at bedtime. 4. Zocor 20 mg daily. 5. Primidone 100 mg at bedtime, 50 mg in the morning. 6. Ditropan 10 mg p.o. daily. 7. Multivitamin 1 tablet daily. 8. Lopressor 25 mg p.o. b.i.d. 9. Reglan 10 mg daily. 10. Insulin 75/25, 25 units in the night and 30 units in the morning. 11. Hydrochlorothiazide 25 mg p.o. daily. 12. Prozac 20 mg daily. 13. Proscar 5 mg daily. 14. Colace 100 mg p.o. daily. 15. Vitamin D3 1000 units p.o. daily. 16. Eliquis 5 mg p.o. b.i.d. 17. Xanax 0.25 mg p.o. at bedtime as needed. ALLERGIES TO MEDICATIONS: Include no known drug allergies. FAMILY HISTORY: Mother had a history of CVA. Father had a history of [place]. SOCIAL HISTORY: He is a former smoker. He quit at 65. Does not drink alcohol. Surrogate decision maker is his . REVIEW OF SYSTEMS: There is no documented fever. He denied having any significant weight change. There was no double vision. There is no ear discharge. He denied having any rhinorrhea. No sore throat. No thyroid enlargement. Denied having any chest pain. There was no orthopnea or nocturnal dyspnea. There was again no abdominal pain. No nausea, vomiting. No dysuria, no frequency. No seizure, no loss of consciousness. Review of 14 systems completed, all others negative. PHYSICAL EXAMINATION GENERAL: At this time, Mr. Richards is an 82-year-old male patient. He is sitting in the ER stretcher. He does not appear to be in any acute distress. He is awake and he is alert. VITAL SIGNS: Reveal blood pressure 135/56, pulse 72, respirations 18, O2 sat 97 %, temperature 96.8. HEENT: Head is atraumatic. Eyes: Sclerae anicteric. NECK: Supple. Throat: Oral mucosa appears to be dry. No oropharyngeal erythema. LUNGS: Clear to auscultation. No wheezes, rales, or rhonchi. HEART: Sounds S1 and S2. Irregularly irregular rate. No murmurs, rubs, or gallops. ABDOMEN: Soft, flat. Nontender. Bowel sounds present. EXTREMITIES: He had pulses 2+ throughout. He is moving all 4 extremities with 5/5 strength. NEUROLOGIC: He is awake, he is alert, and his speech is clear, he is confused to month. Cranial nerves II through XII were intact. Visual pike were intact. No gross obvious focal deficits that I could elicit. [id number] intact bilaterally. Jeqk-[id number] intact bilaterally. Again, no pronator drift was noted either. SKIN: Intact with the exception he does have a wound to the left lower extremity with the erythema surrounding it, but the says the erythema has been like this for several months now. It does not get any worse. It is to the tibia area, it appears to be an abrasion and measures about 2 cm x 2 cm and it does appear to be superficial. DIAGNOSTIC STUDIES/LAB DATA: Today revealed a WBC of 10.7, RBC of 5.02, hemoglobin 14.8, hematocrit of 44, platelet count of 159. INR 1.25. Sodium was 133, potassium was 3.4, bicarb 30, BUN 20, creatinine 0.89, glucose of 232, lactate 1.8, calcium 9.9. Total bili 0.4, AST 11, ALT 11, alk phos 78. Troponin 0. Urine obtained showed 2+ leukocyte esterase, 1+ wbc's, absent bacteria, 3+ glucose. Head CTA was obtained today, which revealed no internal carotid artery stenosis by NASCET criteria. No aneurysm, vascular malformation, occlusion, or stenosis of the visualized intracranial circulation. Brain CT obtained today showed no acute intracranial pathology, no single change compared to 02/06/17 exam. EKG obtained today shows atrial fibrillation, rate of 69, he had flat T waves in V4, V5, and V6 along with V3 in lead aVF. It is reviewed to the previous EKG. The flattened T waves are newer now. The AFib is not new. Does not appear to be any acute changes. Old medical records reviewed. ASSESSMENT AND PLAN: Mr. Richards is an 82-year-old male patient coming into the ER today with visual change, the hospitalist service was asked to evaluate for admission. He will be admitted under inpatient status for: 1. Transient ischemic attack versus cerebrovascular accident. At this point, the patient's symptoms have now resolved. He appears to be stable. Dr. Bosch did evaluate the patient. The plan will be for neuro checks, aspirin, holding Eliquis in case this turns out to be posterior stroke, we will hold the Eliquis and also if it is a stroke that we do not want to have it convert, so we will hold on the Eliquis, neuro checks. CTA has been done. Echo will be ordered and unfortunately he have an MRI because he has a ventriculoperitoneal shunt and we will continue to follow him closely and continue the aspirin and statin. 2. Diabetes. We will put him on lispro sliding scale. 3. Tremors. Continue his meds as prescribed. 4. Hyperlipidemia. Continue statin therapy. 5. Hypertension. We will allow for permissive hypertension. I did order p.r.n. Lopressor though for rate control for his atrial fibrillation. 6. History of cerebrovascular accident. Continue with the aspirin. Restart Eliquis when able. 7. Atrial fibrillation. Again, his rate down here has been hovering in the one teens at times, so I did order some p.r.n. Lopressor. 8. Benign prostatic hyperplasia. Continue his meds as prescribed. 9. Hiatal hernia. Continue meds as prescribed. Appears to be stable. 10. Obstructive sleep apnea. He does not wear a mask. He is not compliant. 11. Dementia. Continue with supportive care. Stable. 12. History of hydrocephalus. He has ventriculoperitoneal shunt. We will continue to monitor for any signs of worsening hydrocephalus, but again at this point, he appears to be back to his baseline. 13. DVT prophylaxis. We are going to put him on SCDs. 14. Code status. He is a DNR. 15. Fluids, electrolytes, and nutrition. He can have a heart healthy diet. TIME SPENT: On the admission was 60 minutes; greater than half the time was spent [id number] with the patient obtaining my history and physical, other half the time was spent going over the plan of care with the patient and implementing the plan of care. I did discuss the plan of care with my attending Dr. Jorge; she is in agreement. JEAN-PAUL VENTURA NP [id number]/[facility] #: [id number] [facility] MEDICAL CENTERVelvet
[2017-06-15] MEDS: Metoprolol Tartrate IV* 1 MG/ML 5 ML VIAL IV PRN (05:51)
[2017-06-15] MEDS ORDERED: Perflutren Lipid Microsphere* 3 ML VIAL ONE (07:47)
[2017-06-15] MEDS: Insulin LISPRO* 1 UNITS UNIT SUBCUT SCH ×3 (08:33→16:50)
[2017-06-15] MEDS: Atorvastatin* 10 MG TAB PO SCH (08:34)
[2017-06-15] MEDS: FLUoxetine CAP* 20 MG PO SCH (08:35)
[2017-06-15] MEDS: Finasteride TAB* 5 MG PO SCH (08:35)
[2017-06-15] MEDS: Aspirin EC Low Dose* 81 MG TAB.EC PO SCH (08:35)
[2017-06-15] MEDS: Metoprolol Tartrate TAB* 25 MG PO SCH ×2 (08:35→20:07)
[2017-06-15 08:44] LABS: Hematocrit 45 % (42-52); Hemoglobin 14.9 g/dl (14.0-18.0); Mean Corpuscular HGB Conc 33 g/dl (31-36); Mean Corpuscular Hemoglobin 29 pg (27-31); Mean Corpuscular Volume 88 fL (80-94); Mean Platelet Volume 10 um3 (7.4-10.4); Red Blood Count 5.06 10^6/ul (4.0-5.4); Red Cell Distribution Width 14 % (10.5-15)
[2017-06-15 08:47] LABS: BUN/Creatinine Ratio 19.8 (8-20); Calcium 9.1 mg/dL (8.6-10.3); EGFR African American 103.1 (>60); EGFR Non-African American 80.2 (>60); HDL Cholesterol 34.1 mg/dL
[2017-06-15 08:49] LABS: Comments Flag Yes
[2017-06-15] MEDS: Oxybutynin XL TAB* 5 MG PO SCH (08:50)
[2017-06-15] MEDS: Primidone TAB(*) 50 MG PO SCH ×2 (08:51→16:56)
[2017-06-15] MEDS: Nystatin TOP POWDER* 15 GM BTL TOPICAL SCH ×3 (08:52→20:13)
[2017-06-15] MEDS ORDERED: Influenza VAC *QUAD* 2017-18* 0.5 ML SYRINGE IM ONE (09:00)
--- NOTE | 2017-06-15 09:19 | RAD ---
Indication: Stroke. Comparison: June 14, 2017 Technique: Noncontrast CT vertex of skull through foramen magnum. Report: Artifact from the RIGHT cochlear implant degrades image quality. LEFT frontal shunt catheter is unchanged in position. The lateral ventricles remain prominent; the atria of the RIGHT lateral ventricle measures 2.7 cm transverse without gross change. Unchanged encephalomalacia at the LEFT occipital lobe white matter measuring up to 1.7 cm AP by 2.8 cm transverse. No additional focal intra-axial lesion evident. Negative for intra or extra-axial hemorrhage. Unremarkable cerebral sulci. Patent basal cisterns. Unremarkable orbital contents. No suspicious calvarial or skull base lesions evident. Clear visualized paranasal sinuses. Grossly clear LEFT mastoid air spaces. Post RIGHT mastoidectomy. IMPRESSION: 1. Unchanged encephalomalacia at the LEFT occipital lobe. 2. Moderate atrophy. 3. Unchanged position of the LEFT frontal shunt catheter. Unchanged moderate enlargement of the lateral ventricles. 4. Negative for intra or extra-axial hemorrhage or mass effect.
--- NOTE | 2017-06-15 09:52 | ECHO ---
Patient: MYRNA DAI [facility] Rec#: [id number] : 1935 Date: 06/15/2017 Age: 82y Height: 172.72 cm / 68.0 in Weight: 90.72 kg / 199.9 lbs Sex: M BSA: 2.04 Room#: 437 Admit Date#: 06/14/2017 Type: Inpatient Referring: Chucho Bosch Reading: Edawrdo Torre MD Recoating Machine Operator: Mali Flores RDCS,RDMS CC: Preeti Henderson MD Transthoracic Echocardiogram Indication: CVA BP: 123/72 HR: 109 Rhythm: A-Fib Findings History: AFIB, HTN, HLD, PVD, DM, hydrocephalus with shunt Technical Comments: The study is technically limited due to poor acoustic windows. Completed 0820 Left Ventricle: The left ventricular chamber size is decreased. Moderate concentric left ventricular hypertrophy is observed. The left ventricle appears hyperdynamic. The estimated ejection fraction is 60-65%. The assessment of diastolic function is non-diagnostic. Left Atrium: The left atrium is mildly dilated. Right Ventricle: The right ventricular chamber size and systolic function are within normal limits. Right Atrium: The right atrium is mildly dilated. Aortic Valve: The aortic valve is trileaflet. The aortic valve leaflets are mildly thickened. There is no evidence of aortic regurgitation. There is no evidence of aortic stenosis. Mitral Valve: The mitral valve structure is not well visualized. There is mitral annular calcification. The mitral valve leaflets do not appear thickened. There is no evidence of mitral regurgitation. There is no evidence of mitral stenosis. Tricuspid Valve: The tricuspid valve leaflets are normal. There is trace tricuspid regurgitation. Unable to estimate the right ventricular systolic pressure. Pulmonic Valve: The pulmonic valve structure is not well visualized. There is no evidence of pulmonic regurgitation. Pericardium: There is no significant pericardial effusion. Aorta: The aortic root appears normal. There is no dilatation of the aortic arch. Pulmonary Artery: The main pulmonary artery is not well visualized. Venous: The inferior vena cava is not visualized. Contrast: Definity was used to optimize study. A total of 3 ml was used Conclusions The study is technically limited due to poor acoustic windows. Minimal accurate statements can be made due to poor quality images. The left ventricle appears hyperdynamic. The estimated ejection fraction is 60-65%. The aortic valve leaflets are mildly thickened and in limited views the valve does not appear to be stenotic. The patient appears to be in atrial fibrillation throughout the test. Would recommend alternative imaging such as transesophageal echocardiography for better assessment of cardiac structutres , especially if assessment for left atrial appendage thrombus is needed. Measurements Name Value Normal Range RVIDd (AP) 2D 2.6 cm (0.9 - 2.6) RAd ISD 4CH 4.9 cm (3.4 - 4.9) RA (A4C)W 5.8 cm (2.9 - 4.6) IVSd (2D) 1.4 cm (0.6 - 1) LVPWd (2D) 1.6 cm (0.6 - 1) LVIDd (2D) 3 cm (3.6 - 5.4) LVIDs (2D) 2 cm - LV FS (2D) 34 % (25 - 45) Aortic Annulus 2.2 cm (1.4 - 2.6) Ao root diameter (2D) 2.8 cm (2.1 - 3.5) Ascending Ao 2.7 cm (2.1 - 3.4) Aortic arch 2.5 cm (1.8 - 3.4) LA dimension (AP) 2D 3.9 cm (2.3 - 3.8) LAd ISD 4CH 6.4 cm (2.9 - 5.3) LA ISD 4CH W 5 cm (2.5 - 4.5) Name Value Normal Range LA ESV SP 4CH (A/L) 72.79 ml - LA ESV SP 2CH (A/L) 76.63 ml - LA ESV BP (A/L) 75.11 ml - LA ESV BP (A/L) index 37 ml/m2 - LA ESV SP 4CH (MOD) 65.22 ml - LA ESV SP 2CH (MOD) 71.53 ml - Name Value Normal Range MV E-wave Vmax 0.8 m/sec - MV deceleration time 143 msec - LV lateral e' Vmax 0.09 m/sec - LV E:e' lateral ratio 9 ratio - Name Value Normal Range AV Vmax 1 m/sec - AV peak gradient 4 mmHg - LVOT Vmax 0.6 m/sec - LVOT peak gradient 1.4 mmHg - KAY Vmax 0.5 m/sec - Name Value Normal Range RAP 8 mmHg - Name Value Normal Range PV Vmax 0.8 m/sec - PV peak gradient 2.6 mmHg -
[2017-06-15] MEDS ORDERED: Apixaban* 5 MG TAB PO ONE (12:00)
[2017-06-15] MEDS ORDERED: Apixaban* 5 MG TAB PO SCH (12:00)
[2017-06-15] MEDS: ceFUROXime TAB(*) 250 MG PO SCH ×2 (12:44→20:07)
--- NOTE | 2017-06-15 15:24 | PN ---
Subjective Date of Service: 06/15/17 Interval History: HOSPITALIST PROGRESS NOTE Patient seen and examined at bedside. Offers no complaints at this time. Denies WILSON, CP, palpitations. Vision is back to normal. Family History: Unchanged from Admission Social History: Unchanged from Admission Past Medical History: Unchanged from Admission Objective Active Medications: Acetaminophen (Tylenol Tab*) 650 mg PO Q4H PRN PRN Reason: FEVER/PAIN Last Admin: 06/14/17 20:22 Dose: 650 mg Alprazolam (Xanax Tab*) 0.25 mg PO BEDTIME PRN PRN Reason: ANXIETY Last Admin: 06/14/17 20:22 Dose: 0.25 mg Apixaban (Eliquis*) 5 mg PO BID [facility] Aspirin (Aspirin Ec Low Dose*) 81 mg PO DAILY [facility] Last Admin: 06/15/17 08:35 Dose: 81 mg Atorvastatin Calcium (Lipitor*) 10 mg PO DAILY [facility] Last Admin: 06/15/17 08:34 Dose: 10 mg Cefuroxime Axetil (Ceftin Tab(*)) 250 mg PO BID [facility] Last Admin: 06/15/17 12:44 Dose: 250 mg Dextrose (D50w Syringe 50 Ml*) 12.5 gm IV PUSH .FOR FS < 60 - SS PRN PRN Reason: FS < 60 Docusate Sodium (Colace Cap*) 100 mg PO QPM [facility] Last Admin: 06/14/17 17:21 Dose: 100 mg Finasteride (Proscar Tab*) 5 mg PO DAILY [facility] Last Admin: 06/15/17 08:35 Dose: 5 mg Fluoxetine HCl (Prozac Cap*) 20 mg PO DAILY [facility] Last Admin: 06/15/17 08:35 Dose: 20 mg Insulin Human Lispro (Humalog*) 0 units SUBCUT AC [facility] PRN Reason: Protocol Last Admin: 06/15/17 11:44 Dose: 8 unit Insulin Human NPH (Insulin Nph(*)) 15 units SUBCUT 0700,1500 [facility] Metoprolol Tartrate (Lopressor Iv*) 5 mg IV Q6H PRN PRN Reason: HEART RATE/PULSE Last Admin: 06/15/17 05:51 Dose: 5 mg Metoprolol Tartrate (Lopressor Tab*) 25 mg PO BID [facility] Last Admin: 06/15/17 08:35 Dose: 25 mg Nystatin (Nystatin Top Powder*) 1 applic TOPICAL TID [facility] Last Admin: 06/15/17 12:45 Dose: 1 applic Ondansetron HCl (Zofran Inj*) 4 mg IV Q6H PRN PRN Reason: NAUSEA Oxybutynin Chloride (Ditropan Xl Tab*) 10 mg PO DAILY [facility] Last Admin: 06/15/17 08:50 Dose: 10 mg Primidone (Mysoline Tab(*)) 50 mg PO QAM [facility] Last Admin: 06/15/17 08:51 Dose: 50 mg Primidone (Mysoline Tab(*)) 100 mg PO QPM [facility] Last Admin: 06/14/17 17:21 Dose: 100 mg Tamsulosin HCl (Flomax Cap*) 0.4 mg PO BEDTIME [facility] Last Admin: 06/14/17 20:23 Dose: 0.4 mg Vital Signs 06/14/17 06/15/17 06/15/17 23:56 04:34 07:36 Temperature 98.4 F 97.8 F 97.4 F Pulse Rate 150 101 137 Respiratory 16 20 18 Rate Blood Pressure 153/89 155/76 141/89 (mmHg) O2 Sat by Pulse 97 96 96 Oximetry Oxygen Devices in Use Now: None Appearance: Elderly male, pleasantly confused, sitting in recliner in NAD. Eyes: No Scleral Icterus Ears/Nose/Mouth/Throat: Mucous Membranes Moist Neck: Trachea Midline Respiratory: Symmetrical Chest Expansion and Respiratory Effort, Clear to Auscultation Cardiovascular: - - Normal s1 and s2, irregularly irregular, tachycardic Abdominal: NL Sounds; No Tenderness; No Distention Neurological: - - AAOx2 (self and place), very PAUMA, BARON Lines/Tubes/Other Access: Clean, Dry and Intact Peripheral IV Nutrition: Taking PO's Result Diagrams: 06/15/17 08:16 06/15/17 08:16 Assess/Plan/Problems-Billing Assessment: Mr. Richards is an 82yo M with PMH of type 2 DM, essential tremors, HLD, HTN, s/p CVA, Afib, BPH, hiatal hernia, hydrocephalus s/p INSPECTOR SET UP AND LAY OUT shunt, dementia, ORTEGA, PAUMA s/ p cochlear implant, who presented to ED with c/o transient visual loss. - Patient Problems (1) Transient visual loss of both eyes Comment: - Repeat CT brain showed no acute lesion. - CTA head and neck was negative. - Echo showed EF 60-65%. - D/w Neurology - patient is a poor historian and his symptoms yesterday could be secondary to an exacerbation of a prior deficit in the setting of UTI. Even if this was a new event (TIA), he's already anticoagulated with Eliquis and Aspirin. - Neurology agrees [facility] would not change his management. (2) Atrial fibrillation with rapid ventricular response Comment: - HR in the 130s. - Will resume Metoprolol and monitor HR. - Resume Eliquis. (3) Type 2 diabetes mellitus Comment: - Will add NPH and continue Lispro SS. (4) UTI (urinary tract infection) Comment: - UA is abnormal - start Ceftin and follow culture. (5) DVT prophylaxis Comment: - Eliquis. (6) DNR (do not resuscitate) Status and Disposition: Inpatient for management of transient visual loss and Afib RVR requiring >48h for stabilization. updated at bedside.
[2017-06-15] MEDS: Insulin NPH(*) 1 UNITS UNIT SUBCUT SCH (16:52)
[2017-06-15] MEDS: Docusate CAP* 100 MG PO SCH (16:55)
[2017-06-15] MEDS: Tamsulosin CAP* 0.4 MG PO SCH (20:07)
[2017-06-15] MEDS: Acetaminophen TAB* 325 MG PO PRN (20:07)
[2017-06-15] MEDS: Apixaban* 5 MG TAB PO SCH (20:07)
--- NOTE | 2017-06-15 23:14 | PN ---
Amended report to enter date of progress note. PROGRESS NOTE: DATE OF PROGRESS NOTE: 06/15/2017. LOCATION: He is currently in room 437, bed 1. SUBJECTIVE: Overnight, he did okay, although this morning, the battery in his cochlear implant is and he is unable to hear. He is more confused. He is a little bit agitated. He has a hard time reading and we tried to explain that we are working on getting a battery for him. The flaring machine operator at his side said that his cochlear implant worked for about 5 minutes this morning and he was very happy, but when it went out, he has now become more frustrated, although he is able to follow commands and smiles. His family has been contacted. There has been no reports of any new issues overnight. Apparently, they had some difficulty getting his blood this morning because of his confusion and frustration. He did have several episodes of increased heart rate and he was given metoprolol. He also had some difficulty urinating at one point and was found to have approximately 300 mL after voiding, Davis was ordered and placed, and at times, he was pulling at its leads. There have been no new neurologic symptoms reported otherwise though. OBJECTIVE: Vital Signs: Temperature 98.7, pulse rate of 101, respiratory rate of 20, pulse ox of 96%, blood pressure of 155/76. His pulse has been in the 117 to 149 overnight. In general, he is a well-nourished, well-developed gentleman, in no acute distress. He is sitting in his chair by the bedside. He is somewhat frustrated because he cannot hear. HEENT: He is normocephalic, atraumatic. He does have area, previous incision site on his left parietal region of his scalp and he has a cochlear implant on the right side. His mucous membranes are moist. Oropharynx is clear. Neck: Supple. No thyromegaly. No carotid bruits. Chest: Clear to auscultation bilaterally. Cardiovascular: Irregularly irregular. Abdomen: Obese, nontender. Extremities : There is no edema noted. Neurologic Exam: He is awake. He is alert. Hard time hearing, so he could not follow all commands, but is able to follow them visually when I demonstrated them. His speech is fluent. There is no dysarthria apparent. Cranial nerves: Pupils are equal, round, and reactive to light. His extraocular muscles appear intact. His visual pike, he continues to have what appears to be a right upper quadrant anopsia, homonymous in nature , that is to threat. He blinks in all other quadrants. His face is symmetric. His hearing is diminished dramatically. 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 Tongue is midline. Palate is symmetric. He spontaneously moves all extremities antigravity. There is no drift apparent. His DTRs are 1+ and symmetric throughout. Sensation was difficult to assess this morning. He is ambulating to the bathroom without difficulty. There are no tremors noted this morning. DIAGNOSTIC STUDIES/LAB DATA: Lab work includes a blood sugar of 345 this morning, it has been elevated. He has a hemoglobin A1c of 8.7. Free T4 of 1.26. B12 of 823. Lipid panel is pending. Reports, he did have a head CTA done yesterday, which showed no carotid stenosis and no aneurysm, vascular malformation, occlusion, or stenosis of the visualized intracranial circulation. I did review the report. Echocardiogram is pending. ASSESSMENT AND PLAN: Mr. Richards is an 82-year-old gentleman with a history of atrial fibrillation, on Eliquis, who presented to the hospital with acute onset of vision loss, found to have a right quadrant anopsia, suspect a left occipital stroke, although I cannot get an MRI because he has a OIL FILTERS INSPECTOR shunt in place secondary to a diagnosis of a normal pressure hydrocephalus. He does have a history of some dementia. Overnight, his battery in his cochlear implant went out, so he is more agitated this morning. We are working to get a battery for him. His exam remains largely nonfocal except for the vision loss and we are going to repeat a CT scan this morning to look for any evolution of his stroke that was not seen yesterday. Await his echocardiogram. He is on aspirin for now. We held his Eliquis and we will likely restart it today or tomorrow after we have confirmation on the CT scan that there is no large stroke that is evolving. We will follow up his lipids and adjust his medication accordingly. My plan is to see him as an outpatient as well to follow up his dementia and work him up for that, but we will hold on any workup or medicines at this time. He has p.r.n. labetalol written for with some permissive hypertension. He is getting metoprolol as well for his tachycardia. Physical therapy has been consulted as well. There does not appear to be any issues with his OIL FILTERS INSPECTOR shunt and I will continue to follow him and make further recommendations as necessary. [id number]/[facility] #: [id number] BRENNAN
[2017-06-16] MEDS: Insulin LISPRO* 1 UNITS UNIT SUBCUT SCH ×2 (08:14→13:10)
[2017-06-16] MEDS: Insulin NPH(*) 1 UNITS UNIT SUBCUT SCH (08:15)
[2017-06-16] MEDS: FLUoxetine CAP* 20 MG PO SCH (08:38)
[2017-06-16] MEDS: ceFUROXime TAB(*) 250 MG PO SCH (08:38)
[2017-06-16] MEDS: Atorvastatin* 10 MG TAB PO SCH (08:38)
[2017-06-16] MEDS: Oxybutynin XL TAB* 5 MG PO SCH (08:38)
[2017-06-16] MEDS: Primidone TAB(*) 50 MG PO SCH (08:38)
[2017-06-16] MEDS: Metoprolol Tartrate TAB* 25 MG PO SCH (08:38)
[2017-06-16] MEDS: Finasteride TAB* 5 MG PO SCH (08:38)
[2017-06-16] MEDS: Apixaban* 5 MG TAB PO SCH (08:38)
[2017-06-16] MEDS: Aspirin EC Low Dose* 81 MG TAB.EC PO SCH (08:38)
[2017-06-16] MEDS: Nystatin TOP POWDER* 15 GM BTL TOPICAL SCH ×2 (08:39→13:12)
--- NOTE | 2017-06-16 10:38 | PN ---
PROGRESS NOTE: DATE OF PROGRESS NOTE: 06/16/17 LOCATION: Current location is room 437, bed 1. SUBJECTIVE: Overnight, he did well. I spoke with his nurse. He states that he was not agitated, t hat he had some insomnia, but otherwise has been much better. He got batteries for his hearing aid, which has helped greatly. He has been following commands, although he does have some underlying dem entia and gets confused at times. He was noted to have a white discharge from his penis yesterday. He is being treated for urinary tract infection. His white count yesterday was elevated at 14. He has been started back on his Eliquis. Repeat CT scan yesterday showed the left shunt in place. Th e left occipital lobe encephalomalacia, no new or evolving infarcts noted. OBJECTIVE: Temperature 98.0, pulse is 78, respiratory rate 24, pulse ox 99%, blood pressure 145/96 to 128/50 to 122/70. In general, he is a well-nourished, well developed gentleman sitting on the si de of his bed in a chair. He is pleasant, well dressed, well groomed. HEENT: Normocephalic, atrau matic. Sclerae anicteric. Mucous membranes are moist. Oropharynx is clear. Neck is supple. No th yromegaly. No carotid bruits or meningismus. Chest: Clear to auscultation bilaterally. Cardiovascu lar: Irregularly irregular. Abdomen: Nontender. Extremities: No clubbing, cyanosis, or edema. Neurologic Exam: He is awake, alert, he is oriented to person. He does have a difficult time heari ng, although his cochlear implant is in place. He is able to answer simple questions. He is not or iented to place or time. Pupils are equal, round, and reactive to light. Extraocular muscles are i ntact. Visual pike: He appears to have a field cult in the upper quadrant, this seems stable, bu t it is a difficult exam. Face is symmetric. Tongue is midline. Palate raises symmetrically. Mot or exam, he spontaneously moves all extremities antigravity 5/5 throughout. There is no drift. Sen sation is grossly intact to light touch and pinprick throughout. He is following commands. He does ambulate with assistance and a gait belt. LAB DATA/DIAGNOSTIC STUDIES: Lab work as noted above. CT scan as noted above. He did have his transthoracic echocardiogram, estimated ejection fraction o f 60% to 65%. Transesophageal echocardiogram was recommended for better evaluation for thrombus. ASSESSMENT AND PLAN: Mr. Richards is an 82-year-old gentleman who presented to the hospital with acut e onset of complete vision loss in both eyes. It lasted for 30 or 40 minutes to an hour and then re solved. He was noted to have a right upper quadrant anopsia, but on CT scan has an old left occipit al infarct, which is not changed. The repeat CT scan the next day showed no evolving infarcts. He does have a history of atrial fibrillation on Eliquis. His Eliquis was initially held but has been restarted. I suspect that he has had some unmasking of his symptoms. 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 His CT angiogram showed no internal carotid arter y stenosis and no aneurysm, vascular malformation, occlusion or stenosis of the visualized intracran ial circulation. At this point, 1. I will continue his Eliquis. 2. Control his blood pressure. 3. Control his blood sugars. They have been elevated in the 300 to 400 range. Hemoglobin A1c was 8 .7, 9.6 yesterday. 4. I do not think we need to repeat [facility] as it would not record changer assembler. He is currently on full strength anticoagulation. 5. Physical therapy. 6. Continue statin. LDL cholesterol is 68. 7. I think he can go either to an inpatient rehab facility or more likely home with physical therap y at home and he can follow up with me in clinic. Thank you for the opportunity to participate in his care. [id number]/[facility] #: [id number]
[2017-06-16] MEDS ORDERED: Insulin LISPRO* 1 UNITS UNIT SUBCUT ONE (12:58)
[2017-06-16 14:05] VITALS: BP 144/72
--- NOTE | 2017-06-17 13:58 | DS ---
CC: Dr. Henderson; Dr. Villa in [place]; Dr. Bosch* DISCHARGE SUMMARY: DATE OF ADMISSION: 06/15/17 DATE OF DISCHARGE: 06/16/17 PRIMARY CARE PROVIDER: Dr. Henderson. UROLOGIST: Dr. Villa in [place]. CONSULTING NEUROLOGIST: Dr. Boshc. DISCHARGE DIAGNOSES: 1. Episode of visual loss of unclear etiology. 2. Urinary tract infection. 3. Genital yeast infection. 4. Atrial fibrillation with rapid ventricular rate. SECONDARY DIAGNOSES: 1. Type 2 diabetes. 2. Essential tremors. 3. Hyperlipidemia. 4. Hypertension. 5. History of prior occipital cerebrovascular accident. 6. Atrial fibrillation. 7. Benign prostatic hypertrophy. 8. Hiatal hernia. 9. History of hydrocephalus, status post UTILITY APPRAISER shunt placement. 10. Dementia. 11. Obstructive sleep apnea. 12. Deafness, status post cochlear implant. 13. Status post transurethral resection of the prostate. MEDICATION LIST: 1. Alprazolam 0.25 mg p.o. at bedtime as needed for insomnia and anxiety. 2. Eliquis 5 mg p.o. b.i.d. 3. Cholecalciferol 1000 units p.o. q.a.m. 4. Colace 100 mg p.o. q.p.m. 5. Finasteride 5 mg p.o. daily. 6. Fluoxetine 20 mg p.o. daily. 7. Hydrochlorothiazide 25 mg p.o. daily. 8. Humalog Mix 75/25 30 units subcutaneously in the morning and 25 units subcutaneously in the evening. 9. Metformin 500 mg p.o. t.i.d. 10. Metoclopramide 10 mg p.o. daily. 11. Metoprolol tartrate 25 mg p.o. b.i.d. 12. PreserVision AREDS 2 one capsule p.o. daily. 13. Oxybutynin XL 10 mg p.o. daily. 14. Primidone 50 mg p.o. q.a.m. and 100 mg p.o. q.p.m. 15. Simvastatin 20 mg p.o. daily. 16. Tamsulosin 0.4 mg p.o. at bedtime. New medications: 1. Ceftin 250 p.o. b.i.d. for 14 days. 2. Nystatin topical powder to genital area 3 times a day. HOSPITAL COURSE: Mr. Richards is an 82-year-old male with a past medical history as stated above that he is a very poor historian due to his dementia and deafness. He presented to the emergency room with complaints of waking up on his usual state of health, but later on developed an episode of visual loss on both eyes and this lasted for 30 minutes to an hour. For more details about his presentation, I refer you to his history and physical. The patient was admitted for further workup. He had a CT of the brain without contrast showed no acute intracranial pathology. CTA of the head that showed no internal carotid artery stenosis; no aneurysm, vascular malformation, occlusion or stenosis. He was seen in consultation by Neurology (Dr. Bosch) and his impression was that Mr. Richards was an 82-year-old gentleman with a history of atrial fibrillation, on Eliquis; prior stoke in August 2015; normal pressure hydrocephalus with UTILITY APPRAISER shunt placement; multiple risk factors for stroke including AFib, hypertension, hyperlipidemia, diabetes, who presented to the hospital with acute onset of what the patient described as complete vision loss in all visual pike. It resolved after about [address] Bosch's examination, the only finding was the right upper quadrant anopsia and he thought that in the past the patient probably had a left occipital lobe stroke. He recommended holding Eliquis initially as we did not know if the patient had a stroke and what size it was and should maintain him on aspirin. The patient could not have an MRI due to hardware, so he recommended a repeat CT to look for any new changes. Repeat CT showed unchanged encephalomalacia at the left occipital lobe, moderate atrophy, unchanged position of the left frontal shunt catheter, no intra- or extra- axial hemorrhage or mass effect. At that point, Dr. Bosch felt that the patient's vision loss etiology was unclear , but his workup was negative for a stroke. A transthoracic echocardiogram was performed and it showed ejection fraction of 60% to 65% and it was the poor quality imaging study, but it was felt that a transesophageal echocardiogram even if he showed a clot would not change his management, and the plan was still to continue anticoagulation with Eliquis. The patient was found to have a urinary tract infection and urine culture is pending at this time and should be followed as outpatient. One possibility would be that the urinary tract infection exacerbated his deficit from a prior occipital stroke and that could explain some worsening of his visual field, but would not explain total vision loss like he described. The patient was started on antibiotics and the final result of his culture should be followed as outpatient. He was also found to have a significant yeast infection in his genital area, being treated with nystatin. The patient has a history of BPH and he should follow up with his primary care, Dr. Henderson and with his urologist , Dr. Villa as the patient is at risk for prostatitis. I am prescribing 2 weeks of antibiotics for now, but after they get the culture result and they see the patient in followup, they may want to prolong his antibiotic course. The patient was found to be in atrial fibrillation with rapid ventricular rate and he was continued on metoprolol with good rate control. His glucose became elevated while in the hospital, most likely because the insulin we use here is different from the regimen he uses at home and we had to hold his metformin, so he could have his CTA. I believe he will be better controlled at home when he returns to his usual diet and usual insulin regimen. A hemoglobin A1c was checked and it was 9.6. Lipid profile was also checked and his LDL is 68. The patient had one episode of urinary retention, A Davis catheter was placed and removed prior to discharge. He was seen by physical therapy and it was felt he would benefit of outpatient physical therapy and he was referred to [facility] services to continue physical therapy at home. He was also found to have OT needs and that should be continued at home too. The patient became asymptomatic and he was felt to be medically stable for discharge at this point. PHYSICAL EXAMINATION: Vital Signs: Temperature 98.4, heart rate is 64, respiratory rate is 20, oxygen saturation is 98% on room air, and blood pressure is 144/72. General: The patient is an elderly male, pleasantly confused, sitting up in a recliner, in no acute distress. CVS: Normal S1 and S2. Irregularly irregular. Chest: Breath sounds present bilaterally with no added sounds. Abdomen: Obese, soft, bowel sounds are present. Neuro: He is alert and oriented to self and place, very hard of hearing, but he moves all 4 extremities and I did not detect any visual field cut at this time. DIET: Heart healthy, consistent carb diet. ACTIVITIES: As tolerated. DISPOSITION: To home. STATUS WHILE IN THE HOSPITAL: Inpatient. Please keep in mind this is a summarized version of this patient's hospital stay. If you need more information, please feel free to call me at [phone] or please obtain the full medical records. TIME SPENT: Approximately 50 minutes was spent to complete this discharge. [id number]/CPS #: [id number] MTDD
== END 2017-06-16 14:50 | disposition home or self-care (01) | DRG 690 ==
LOC: ED 11:28 → MEDTELE 14:55
PROVIDERS: ADMIT Internal Medicine; ATTEND Internal Medicine
DX: N39.0 Urinary tract infection, site not specified (principal); B37.89 Other sites of candidiasis; I48.91 Unspecified atrial fibrillation; H53.461 Homonymous bilateral field defects, right side; F03.90 Unspecified dementia, unspecified severity, without behavioral disturbance, psychotic disturbance, mood disturbance, and anxiety; E11.9 Type 2 diabetes mellitus without complications; G25.0 Essential tremor; I10 Essential (primary) hypertension; E78.5 Hyperlipidemia, unspecified; N40.1 Benign prostatic hyperplasia with lower urinary tract symptoms; R33.8 Other retention of urine; K44.9 Diaphragmatic hernia without obstruction or gangrene; Z98.2 Presence of cerebrospinal fluid drainage device; G47.33 Obstructive sleep apnea (adult) (pediatric); Z86.73 Personal history of transient ischemic attack (TIA), and cerebral infarction without residual deficits; H91.90 Unspecified hearing loss, unspecified ear; Z79.01 Long term (current) use of anticoagulants; Z79.84 Long term (current) use of oral hypoglycemic drugs; Z79.4 Long term (current) use of insulin; Z79.899 Other long term (current) drug therapy; Z82.3 Family history of stroke; Z82.49 Family history of ischemic heart disease and other diseases of the circulatory system; Z87.891 Personal history of nicotine dependence
CPT/HCPCS: 36415; 70450; 70496; 70498; 80048; 80053; 80061; 81003; 81015; 82607; 82746; 82947; 83036; 83090; 83605; 84439; 84443; 84484; 85025; 85610; 87086; 90686; 93005; 93306; 99213; A9270-GY; C8929; G0463; Q9967

== ENCOUNTER 2017-06-23 02:00 | Emergency (ER) | payer MEDICARE ==
--- NOTE | 2017-06-23 04:24 | ED ---
Freddie Chong Rebecca, scribed for Erin Ritter MD on 06/23/17 at 0224 . Throat Pain/Nasal Congestion - HPI Summary HPI Summary: Pt is an 82 y/o M BIBA who presents to ED accompanied by his son with a CC of sore throat. Son reports that at approximately 2300 he woke up complaining of throat pain. Pain is currently moderate, ranked 4/10. Sx aggravated and alleviated by nothing. Additionally c/o myalgias. Denies rhinorrhea and CP. PMHx dementia with almost all Hx obtained from the pt's son during this visit. - History of Current Complaint Chief Complaint: EDGeneral Time Seen by Provider: 06/23/17 02:03 Hx Obtained From: Family/Dulser - Son Onset/Duration: Still Present Severity: Moderate - 4/10 Cough: None - Allergies/Home Medications Allergies/Adverse Reactions: Allergies Allergy/AdvReac Type Severity Reaction Status Date / Time No Known Allergies Allergy Verified 06/14/17 11:41 PMH/Surg Hx/FS Hx/Imm Hx Endocrine/Hematology History: Reports: Hx Diabetes Denies: Hx Thyroid Disease Cardiovascular History: Reports: Hx Hypercholesterolemia, Hx Hypertension, Hx Peripheral Vascular Disease, Other Cardiovascular Problems/Disorders - heart cath 2003 Denies: Hx Congestive Heart Failure, Hx Pacemaker/ICD Respiratory History: Reports: Hx Sleep Apnea Denies: Hx Asthma, Hx Chronic Obstructive Pulmonary Disease (COPD) GI History: Reports: Hx Hiatal Hernia - TYPE 3 , SURGERY 1998 Denies: Hx Ulcer History: Reports: Hx Benign Prostatic Hyperplasia, Other Problems/ Disorders - INCONTINENCE URINE TURP Denies: Hx Renal Disease Musculoskeletal History: Reports: Hx Arthritis, Other Musculoskeletal History - Tremors Sensory History: Reports: Hx Contacts or Glasses, Hx Deafness - cochlear implant , Hx Hearing Aid - cochlear implant, Hx Hearing Problem - coclear implant Denies: Hx Cataracts, Hx Eye Injury, Hx Eye Prosthesis, Hx Glaucoma, Hx Legally Blind, Hx Macular Degeneration, Hx Vision Problem, Other Sensory Impairments Opthamlomology History: Reports: Hx Contacts or Glasses Denies: Hx Cataracts, Hx Eye Injury, Hx Eye Prosthesis, Hx Glaucoma, Hx Legally Blind, Hx Macular Degeneration, Hx Vision Problem, Other Sensory Impairments Neurological History: Reports: Hx Dementia, Other Neuro Impairments/Disorders - GAIT DISTURBANCE, ESSENTIAL TREMOR, INHP NORMAL PRESSURE HYDROCEPHALUS. Psychiatric History: Denies: Hx Anxiety, Hx Depression, Hx Panic Disorder - Surgical History Surgery Procedure, Year, and Place: cochlear implant 2001 [facility]-unsafe for mri . heart catherization 2003. TURP 2012. Hernia Type 3 Hiatal repair 1998. varicose vein stripping 1980. 2015 HYDROCEPHALUS SURGERY. shunt placement for Hydrocephalus 06-02-15 Hx Anesthesia Reactions: No Infectious Disease History: No Infectious Disease History: Denies: Hx Hepatitis, Hx Human Immunodeficiency Virus (HIV), Traveled Outside the [place] in Last 30 Days - Family History Known Family History: Positive: Cardiac Disease, Diabetes - Social History Alcohol Use: None Substance Use Type: Reports: None Smoking Status (MU): Unknown if Ever Smoked Type: Cigarettes Amount Used/How Often: LESS THEN 1 PPD, 5+ YEARS Have You Smoked in the Last Year: No Review of Systems Positive: Sore Throat. Negative: Nasal Discharge Negative: Chest Pain Positive: Myalgia All Other Systems Reviewed And Are Negative: Yes Physical Exam - Summary Physical Exam Summary: General: Well appearing, no pain distress Skin: Warm, Skin Color Reflects Adequate Perfusion, Dry Eyes: EOMI, FRANCO ENT: Pharynx normal, TMs normal Neck: Supple, nontender Respiratory: CTA, breath sounds present, no rhonchi, no wheezes, no rales Cardiovascular: RRR, no murmur, no rub, no gallop Abdomen: Soft, nontender, Non-distended, no guarding, no rebound Bowel: Present Musculoskeletal: ONDINA, No edema Neuro: Sensory/motor intact, A&Ox3, CN intact 2-12 Psych: Affect/mood appropriate Triage Information Reviewed: Yes Vital Signs On Initial Exam: Initial Vitals Temp Pulse Resp BP Pulse Ox 97.9 F 74 18 121/68 95 06/23/17 02:05 06/23/17 02:05 06/23/17 02:05 06/23/17 02:05 06/23/17 02:05 Vital Signs Reviewed: Yes - [place] Coma Scale Coma Scale Total: 14 Diagnostics - Vital Signs Vital Signs Temp Pulse Resp BP Pulse Ox 06/23/17 02:05 97.9 F 74 18 121/68 95 - Laboratory Lab Results: Lab Results 06/23/17 06/23/17 Range/Units 03:29 03:34 Influenza A (Rapid) Negative (Negative) Influenza B (Rapid) Negative (Negative) Group A Strep Rapid Negative (Negative) Lab Statement: Any lab studies that have been ordered have been reviewed, and results considered in the medical decision making process. - EKG 0229 Cardiac Rate: NL - 81 bpm EKG Rhythm: Atrial Fibrillation ST Segment: Non-Specific - Non-specific ST changes Ectopy: PVCs - 1 EENT Course/Dx - Course Course Of Treatment: pt came in with sore throat tonight stable vital signs normal exam and normal oropharynx and stable ekg (in case of atypical angina) pt is stable for discharge - Diagnoses Provider Diagnoses: Sore throat Discharge - Discharge Plan Condition: Stable Disposition: HOME The documentation as recorded by the Freddie drummond Rebecca accurately reflects the service I personally performed and the decisions made by , Erin Ritter MD.
[2017-06-23 05:05] VITALS: BP 130/67
== END 2017-06-23 05:19 | disposition home or self-care (01) ==
LOC: ED 02:00
DX: J02.9 Acute pharyngitis, unspecified (principal); Z87.891 Personal history of nicotine dependence
CPT/HCPCS: 87502; 87651; 93005; 99283

== ENCOUNTER 2017-07-15 13:01 | Inpatient (IN) | payer MEDICARE ==
[2017-07-15 14:25] LABS: Hematocrit 43 % (42-52); Hemoglobin 14.6 g/dl (14.0-18.0); Mean Corpuscular HGB Conc 34 g/dl (31-36); Mean Corpuscular Hemoglobin 30 pg (27-31); Mean Corpuscular Volume 87 fL (80-94); Mean Platelet Volume 10 um3 (7.4-10.4); Red Blood Count 4.92 10^6/ul (4.0-5.4); Red Cell Distribution Width 14 % (10.5-15); White Blood Count 11.2 10^3/ul (3.5-10.8)
[2017-07-15 14:37] LABS: ALT 17 U/L (7-52); Albumin 3.9 g/dL (3.2-5.2); Alkaline Phosphatase 68 U/L (34-104); BUN/Creatinine Ratio 13.7 (8-20); Blood Urea Nitrogen 13 mg/dL (6-24); CO2 Carbon Dioxide 27 mmol/L (22-32); Calcium 9.6 mg/dL (8.6-10.3); Chloride 92 mmol/L (101-111); EGFR African American 98.1 (>60); EGFR Non-African American 76.3 (>60); Globulin 2.9 g/dL (2-4); Glucose 158 mg/dL (70-100); Sodium 126 mmol/L (133-145); Total Protein 6.8 g/dL (6.4-8.9)
[2017-07-15 14:38] LABS: Troponin I 0.01 ng/mL (<0.04)
--- NOTE | 2017-07-15 14:44 | RAD ---
INDICATION: Altered mental status COMPARISON: Most recent comparison chest x-rays dated August 27, 2015 TECHNIQUE: Single AP portable view of the chest was obtained. FINDINGS: Image quality is compromised due to the relative inferiority of a portable chest x-ray. Stable catheter overlying the left neck and left lateral mediastinum continuing below the diaphragm. The heart and mediastinum exhibit normal size and contour. Stable calcified atherosclerosis is noted at the arch of the aorta. The lungs are grossly clear. There is no evidence of a large pleural effusion. Visualized bones are normal for the patient's age. IMPRESSION: No radiographic evidence for acute cardiopulmonary abnormality on this portable chest x-ray.
[2017-07-15 15:11] LABS: Anion Gap 7 mmol/L (2-11)
[2017-07-15] MEDS ORDERED: Iodixanol* (CONTRAST) 320 MG/ML 100 ML SDV IV ONE (15:47)
--- NOTE | 2017-07-15 16:19 | RAD ---
INDICATION: Altered mental status COMPARISON: Multiple prior brain CTs, most recently dated June 15, 2017 TECHNIQUE: Contiguous axial sections of the brain were obtained from the skull base to the vertex without contrast. FINDINGS: There is streak artifact created by the cochlear implant that somewhat limits evaluation of the brain. The patient is status post left frontal lobe craniotomy with placement of a ventriculoperitoneal shunt at the anterior left frontal horn. The ventricles, cisterns and sulci exhibit symmetrical involutional changes similar in appearance to the prior CT examination. There is stable encephalomalacia in the occipital lobe adjacent to the posterior left ventricular horn.. The cortes-white matter differentiation is adequately maintained and there is no sulcal effacement. No significant focal abnormality or mass effect is present. There is no evidence for intracranial hemorrhage. No significant focal osseous abnormality is present. The visualized portion of the paranasal sinuses and mastoid air cells appear clear. IMPRESSION: Chronic findings and postsurgical changes as described above, not significantly changed since a June 15, 2017 CT of the brain.
--- NOTE | 2017-07-15 16:28 | RAD ---
INDICATION: Postprandial abdominal pain COMPARISON: Most recent CT is dated July 04, 2017 TECHNIQUE: Axial source images were acquired of the abdomen and pelvis utilizing CT angiographic technique with injection of 100 mL of Visipaque 320. Coronal and sagittal reconstructed images were acquired. 3-D volume rendered images were obtained. FINDINGS: Evaluation is limited by streak artifact caused by not only the patient's arms overlying the abdomen but the presence of a metallic watch. Vascular findings: The aorta exhibits mild ectatic curvature but is otherwise normal in appearance. There is calcified atherosclerosis above the bifurcation that extends into the bilateral iliac arteries. Visceral branches: There are single renal arteries bilaterally which appear adequately patent. There is severe narrowing at the origin of the celiac artery. Iliac arteries: The common and external iliac arteries are adequately patent bilaterally. Contrast is seen filling as far as the proximal superficial femoral arteries bilaterally. Nonvascular findings: The patient's ventriculoperitoneal shunt is seen traveling over the left hemithorax and terminating in the right upper quadrant. The visualized lung bases are grossly clear without mass or pleural effusion. The liver, spleen, pancreas and adrenal glands are normal. The gallbladder is normal in appearance. On the arterial phase images the renal cortices enhance symmetrically. There is no retroperitoneal or mesenteric lymphadenopathy. Evaluation of the bowel is limited in the absence of oral contrast. There is malrotation of the bowel with the small bowel located in the right hemiabdomen. The duodenum and jejunum do not appear to cross the midline. The small and large bowel do not exhibit pathologic distention. The normal partially gas-filled appendix is identified in the right lower quadrant (coronal image 135 and axial image 73). There are innumerable rectosigmoid diverticula but none exhibit definite focal inflammatory change characteristic of diverticulitis. The prostate is enlarged and heterogeneous measuring 6 x 6 cm in the axial plane and 6.7 cm in the cephalocaudal projection. Multilevel degenerative changes of the lower thoracic and lumbar spine are seen including vacuum disc phenomenon at L5/S1.. There are no sinister bone lesions in the visualized bones. IMPRESSION: 1. No CT evidence of acute arterial abnormality. 2. Congenital bowel malrotation. 3. The prostate is enlarged and heterogeneous. Please correlate to physical examination. 4. Additional chronic and degenerative changes described in body the report.
[2017-07-15 16:44] LABS: Urine Bilirubin Negative (Negative); Urine Glucose Negative (Negative); Urine Nitrite Negative (Negative)
--- NOTE | 2017-07-15 17:11 | ED ---
Freddie Chong Rebecca, scribed for Erin Ritter MD on 07/15/17 at 1349 . Abdominal Pain/Male - HPI Summary HPI Summary: Pt is an 82 y/o M BIBA who presents to ED due to concerns of abdominal pain with N/V. reports that for the past week, he has been experiencing severe abdominal pain upon eating. states that after eating, the pain will began and persists until he needs to eat again. At triage, pain is noted to be 0/10. Sx aggravated by food, alleviated slightly by Tums, unchanged by Tylenol. Family additionally notes inability to walk, increased urinary frequency, intermittent severe WILSON, difficulty sleeping and worsening AMS. states that he urinated 39 times in the night. Was on Cipro which he completed the course of on Monday (5 days ago). PMHx dementia and normal pressure hydrocephalus. Pt was evaluated by [facility] about 2 weeks ago after being unable to see during which he was admitted. - History of Current Complaint Chief Complaint: EDAltMentalStatus Stated Complaint: AMS Time Seen by Provider: 07/15/17 13:24 Hx Obtained From: Family/Recreational Therapy Technician - Onset/Duration: Still Present Timing: Intermittent Severity Initially: Severe Severity Currently: None Pain Intensity: 0 Pain Scale Used: 0-10 Numeric Location: Diffuse Aggravating Factor(s): Food Alleviating Factor(s): Other: - Tums - slightly Associated Signs And Symptoms: Positive: Urinary Symptoms - Increased urinary frequency, Nausea, Vomiting - Allergies/Home Medications Allergies/Adverse Reactions: Allergies Allergy/AdvReac Type Severity Reaction Status Date / Time No Known Allergies Allergy Verified 06/14/17 11:41 PMH/Surg Hx/FS Hx/Imm Hx Endocrine/Hematology History: Reports: Hx Diabetes Denies: Hx Thyroid Disease Cardiovascular History: Reports: Hx Hypercholesterolemia, Hx Hypertension, Hx Peripheral Vascular Disease, Other Cardiovascular Problems/Disorders - heart cath 2003 Denies: Hx Congestive Heart Failure, Hx Pacemaker/ICD Respiratory History: Reports: Hx Sleep Apnea Denies: Hx Asthma, Hx Chronic Obstructive Pulmonary Disease (COPD) GI History: Reports: Hx Hiatal Hernia - TYPE 3 , SURGERY 1998 Denies: Hx Ulcer History: Reports: Hx Benign Prostatic Hyperplasia, Other Problems/ Disorders - INCONTINENCE URINE TURP Denies: Hx Dialysis, Hx Renal Disease Musculoskeletal History: Reports: Hx Arthritis, Other Musculoskeletal History - Tremors Sensory History: Reports: Hx Contacts or Glasses, Hx Deafness - cochlear implant , Hx Hearing Aid - cochlear implant, Hx Hearing Problem - coclear implant Denies: Hx Cataracts, Hx Eye Injury, Hx Eye Prosthesis, Hx Glaucoma, Hx Legally Blind, Hx Macular Degeneration, Hx Vision Problem, Other Sensory Impairments Opthamlomology History: Reports: Hx Contacts or Glasses Denies: Hx Cataracts, Hx Eye Injury, Hx Eye Prosthesis, Hx Glaucoma, Hx Legally Blind, Hx Macular Degeneration, Hx Vision Problem, Other Sensory Impairments Neurological History: Reports: Hx Dementia, Other Neuro Impairments/Disorders - GAIT DISTURBANCE, ESSENTIAL TREMOR, INHP NORMAL PRESSURE HYDROCEPHALUS. Psychiatric History: Denies: Hx Anxiety, Hx Depression, Hx Panic Disorder - Surgical History Surgery Procedure, Year, and Place: cochlear implant 2001 [facility]-unsafe for mri . heart catherization 2003. TURP 2012. Hernia Type 3 Hiatal repair 1998. varicose vein stripping 1980. 2015 HYDROCEPHALUS SURGERY. shunt placement for Hydrocephalus 06-02-15 Hx Anesthesia Reactions: No Infectious Disease History: Yes Infectious Disease History: Denies: Hx Hepatitis, Hx Human Immunodeficiency Virus (HIV), Traveled Outside the [place] in Last 30 Days - Family History Known Family History: Positive: Cardiac Disease, Diabetes - Social History Alcohol Use: None Substance Use Type: Reports: None Smoking Status (MU): Unknown if Ever Smoked Type: Cigarettes Amount Used/How Often: LESS THEN 1 PPD, 5+ YEARS Have You Smoked in the Last Year: No Review of Systems Positive: Other - Inability to walk Positive: Abdominal Pain, Vomiting, Nausea Positive: frequency - Increased urinary frequency Positive: Other - Blister on the RLE Neurological: Other - Worsening AMS, difficulty sleeping Positive: Headache - Intermittent severe WILSON All Other Systems Reviewed And Are Negative: Yes Physical Exam - Summary Physical Exam Summary: General: Well appearing, no pain distress Skin: Warm, Dry, He has a blister on his right leg on the distal 1/3 with some abrasions and he has some ulcerations on the left distal 1/3 of the leg with surrounding erythema but no fluctuance Eyes: EOMI, FRANCO ENT: Pharynx normal, TMs normal Neck: Supple, nontender Respiratory: CTA, breath sounds present, no rhonchi, no wheezes, no rales Cardiovascular: RRR, no murmur, no rub, no gallop Abdomen: Soft, nontender, Non-distended, no guarding, no rebound Bowel: Present Musculoskeletal: ONDINA, Bilateral edema from his ankles down Neuro: Sensory/motor intact, A&Ox3, CN intact 2-12 Psych: Affect/mood appropriate Triage Information Reviewed: Yes Vital Signs On Initial Exam: Initial Vitals Temp Pulse Resp BP Pulse Ox 97.5 F 74 18 137/80 98 07/15/17 13:19 07/15/17 13:19 07/15/17 13:19 07/15/17 13:19 07/15/17 13:19 Vital Signs Reviewed: Yes - [place] Coma Scale Best Eye Response: 4 - Spontaneous Best Motor Response: 6 - Obeys Commands Best Verbal Response: 5 - Oriented Diagnostics - Vital Signs Vital Signs Temp Pulse Resp BP Pulse Ox 07/15/17 13:19 97.5 F 74 18 137/80 98 - Laboratory Lab Results: Lab Results 07/15/17 07/15/17 07/15/17 Range/Units 13:47 13:47 13:47 WBC 11.2 H (3.5-10.8) 10^3/ul RBC 4.92 (4.0-5.4) 10^6/ul Hgb 14.6 (14.0-18.0) g/dl Hct 43 (42-52) % MCV 87 (80-94) fL MCH 30 (27-31) pg MCHC 34 (31-36) g/dl RDW 14 (10.5-15) % Plt Count 190 (150-450) 10^3/ul MPV 10 (7.4-10.4) um3 Neut % (Auto) 63.8 (38-83) % Lymph % (Auto) 23.3 L (25-47) % Levy % (Auto) 11.4 H (1-9) % Eos % (Auto) 0.8 (0-6) % Baso % (Auto) 0.7 (0-2) % Absolute Neuts (auto) 7.2 (1.5-7.7) 10^3/ul Absolute Lymphs (auto) 2.6 (1.0-4.8) 10^3/ul Absolute Monos (auto) 1.3 H (0-0.8) 10^3/ul Absolute Eos (auto) 0.1 (0-0.6) 10^3/ul Absolute Basos (auto) 0.1 (0-0.2) 10^3/ul Absolute Nucleated RBC 0.01 10^3/ul Nucleated RBC % 0.1 Sodium 126 L (133-145) mmol/L Potassium TNP Chloride 92 L (101-111) mmol/L Carbon Dioxide 27 (22-32) mmol/L Anion Gap 7 (2-11) mmol/L BUN 13 (6-24) mg/dL Creatinine 0.95 (0.67-1.17) mg/dL Est GFR ( Amer) 98.1 (>60) Est GFR (Non-Af Amer) 76.3 (>60) BUN/Creatinine Ratio 13.7 (8-20) Glucose 158 H (70-100) mg/dL Lactic Acid 0.9 (0.5-2.0) mmol/L Calcium 9.6 (8.6-10.3) mg/dL Total Bilirubin 0.50 (0.2-1.0) mg/dL AST TNP ALT 17 (7-52) U/L Alkaline Phosphatase 68 (34-104) U/L Troponin I 0.01 (<0.04) ng/mL Total Protein 6.8 (6.4-8.9) g/dL Albumin 3.9 (3.2-5.2) g/dL Globulin 2.9 (2-4) g/dL Albumin/Globulin Ratio 1.3 (1-3) Urine Color Urine Appearance Urine pH (5-9) Ur Specific [place] (1.010-1.030) Urine Protein (Negative) Urine Ketones (Negative) Urine Blood (Negative) Urine Nitrate (Negative) Urine Bilirubin (Negative) Urine Urobilinogen (Negative) Ur Leukocyte Esterase (Negative) Urine Glucose (Negative) 07/15/17 Range/Units 16:27 WBC (3.5-10.8) 10^3/ul RBC (4.0-5.4) 10^6/ul Hgb (14.0-18.0) g/dl Hct (42-52) % MCV (80-94) fL MCH (27-31) pg MCHC (31-36) g/dl RDW (10.5-15) % Plt Count (150-450) 10^3/ul MPV (7.4-10.4) um3 Neut % (Auto) (38-83) % Lymph % (Auto) (25-47) % Levy % (Auto) (1-9) % Eos % (Auto) (0-6) % Baso % (Auto) (0-2) % Absolute Neuts (auto) (1.5-7.7) 10^3/ul Absolute Lymphs (auto) (1.0-4.8) 10^3/ul Absolute Monos (auto) (0-0.8) 10^3/ul Absolute Eos (auto) (0-0.6) 10^3/ul Absolute Basos (auto) (0-0.2) 10^3/ul Absolute Nucleated RBC 10^3/ul Nucleated RBC % Sodium (133-145) mmol/L Potassium Chloride (101-111) mmol/L Carbon Dioxide (22-32) mmol/L Anion Gap (2-11) mmol/L BUN (6-24) mg/dL Creatinine (0.67-1.17) mg/dL Est GFR ( Amer) (>60) Est GFR (Non-Af Amer) (>60) BUN/Creatinine Ratio (8-20) Glucose (70-100) mg/dL Lactic Acid (0.5-2.0) mmol/L Calcium (8.6-10.3) mg/dL Total Bilirubin (0.2-1.0) mg/dL AST ALT (7-52) U/L Alkaline Phosphatase (34-104) U/L Troponin I (<0.04) ng/mL Total Protein (6.4-8.9) g/dL Albumin (3.2-5.2) g/dL Globulin (2-4) g/dL Albumin/Globulin Ratio (1-3) Urine Color Yellow Urine Appearance Clear Urine pH 7.0 (5-9) Ur Specific [place] 1.013 (1.010-1.030) Urine Protein Negative (Negative) Urine Ketones Negative (Negative) Urine Blood Negative (Negative) Urine Nitrate Negative (Negative) Urine Bilirubin Negative (Negative) Urine Urobilinogen Negative (Negative) Ur Leukocyte Esterase Negative (Negative) Urine Glucose Negative (Negative) Result Diagrams: 07/15/17 13:47 07/15/17 13:47 Lab Statement: Any lab studies that have been ordered have been reviewed, and results considered in the medical decision making process. - Radiology CXR Xray Interpretation: No Acute Changes - No radiographic evidence for acute cardiopulmonary abnormality on this portable chest x-ray. ED physician reviewed radiology report and agrees. Radiology Interpretation Completed By: Radiologist - CT Brain CT CT Interpretation: No Acute Changes - Chronic findings and postsurgical changes as described above, not significantly changed since a June 15, 2017 CT of the brain. ED physician reviewed radiology report and agrees. CT Interpretation Completed By: Radiologist Abd/Pel CTA CT Interpretation: No Acute Changes - 1. No CT evidence of acute arterial abnormality. 2. Congenital bowel malrotation. 3. The prostate is enlarged and heterogeneous. Please correlate to physical examination. 4. Additional chronic and degenerative changes described in body the report. ED physician reviewed radiology report and agrees. CT Interpretation Completed By: Radiologist - EKG 1451 Cardiac Rate: NL - 81 bpm EKG Rhythm: Atrial Fibrillation EKG Interpretation: Inferior Qs, Poor R wave progression EKG Comparison: No Significant Change - from EKG on 06/23/2017 Abdominal Pain Fem Course/Dx - Course Course Of Treatment: 82 yo male with dementia who is complaining of headache, having to urinate frequently, and pain with eating. ct brain, cta abd/pelvis and ua are negative, labs are normal. Family says pt is no longer able to ambulate or even transfer safely at home, case was discussed with Dr. Lazar for admission - Diagnoses Provider Diagnoses: Abdominal pain, Headache, Unable to walk - Provider Notifications Discussed Care Of Patient With: Loren Lazar Time Discussed With Above Provider: 17:08 Instructed by Provider To: Other - Accepts pt for admission. Discharge - Discharge Plan Condition: Stable Disposition: ADMITTED TO [facility] Referrals: Preeti Henderson MD [Primary Care Provider] - The documentation as recorded by the Freddie drummond Rebecca accurately reflects the service I personally performed and the decisions made by Stone fajardo Justine, MD.
[2017-07-15] MEDS ORDERED: Dextrose 50% Syringe 50 ML* 25 GM/50 ML SYRINGE IV PUSH PRN (18:13)
[2017-07-15] MEDS ORDERED: NS 0.9% 1000 ML* 1,000 ML IV SCH (18:15)
--- NOTE | 2017-07-15 20:06 | RAD ---
INDICATION: Altered mental status. COMPARISON: CT OF THE BRAIN AND BODY DATED JULY 15, 2017 TECHNIQUE: A total of 7 radiographs of the head and body were acquired to visualize the ventriculoperitoneal shunt FINDINGS: THE VENTRICULOPERITONEAL SHUNT IS VISUALIZED OVERLYING THE CALVARIUM. THE CATHETER TRAVELS DOWN THE LEFT NECK AND LEFT HEMITHORAX. THE CATHETER MAKES A LOOP IN THE LEFT UPPER ABDOMEN. THE CATHETER TERMINATES IN THE LEFT LOWER QUADRANT. IMPRESSION: VENTRICULOPERITONEAL SHUNT DESCRIBED ABOVE.
[2017-07-15] MEDS ORDERED: Haloperidol INJ IV/IM* 5 MG/ML AMP ONE ×2 (21:03→23:21)
[2017-07-15] MEDS: Haloperidol INJ IV/IM* 5 MG/ML AMP IV SLOW PU PRN (21:10)
[2017-07-15] MEDS: Senna TAB PO SCH (21:47)
[2017-07-15] MEDS: Tamsulosin CAP* 0.4 MG PO SCH (21:47)
[2017-07-15] MEDS: ALPRAZolam TAB* 0.25 MG PO PRN (21:47)
[2017-07-15] MEDS: Metoprolol Tartrate TAB* 25 MG PO SCH (21:47)
[2017-07-15] MEDS: Docusate CAP* 100 MG PO SCH (21:47)
[2017-07-15] MEDS: Insulin LISPRO* 1 UNITS UNIT SUBCUT SCH (21:51)
--- NOTE | 2017-07-15 22:26 | HP ---
CC: Dr. Titus; Dr. Brown; Dr. Henderson; Dr. Villa* HISTORY AND PHYSICAL: DATE OF ADMISSION: 07/15/17 PRIMARY CARE PROVIDER: Dr. Henderson. CHIEF COMPLAINT: Not eating well, not ambulating well, disoriented. HISTORY OF PRESENT ILLNESS: Alvaro Richards is an 82-year-old male with history of status post BEHAVIORAL THERAPIST shunt for a normal pressure hydrocephalus in 2014, who also has history of chronic atrial fibrillation and is on Eliquis and he was brought in by concerned family after the patient had been not doing well for the past month. Approximately a month ago, he was discharged from our facility with a diagnosis of an episode of visual loss of unclear etiology and UTI. He was discharged with physical therapy and VNS services. The patient's stated that ever since he had been doing poorly. He had been getting more disoriented and confused. The patient does have history of baseline dementia. They also needed 3 people to get him out of bed today. Upon evaluation in the emergency department, he was noted to have hyponatremia, swollen legs with blisters. He has also chronic leukocytosis. There is no obvious source of infection or cause of his change of mental status. The patient is going to be admitted. He is going to a full admit due to patient likely requiring a short-term rehabilitation at the end of his hospital stay since he will not be able to go home in this state. He also will be evaluated for BEHAVIORAL THERAPIST shunt patency by Dr. Titus from Neurosurgery. PAST MEDICAL HISTORY: 1. History of atrial fibrillation, chronic. 2. History of hypertension. 3. History of normal pressure hydrocephalus, status post BEHAVIORAL THERAPIST shunt in 2014. 4. History of urinary incontinence and urinary retention. The patient was seen by his urologist within the past week. 5. History of diabetes type 2. 6. History of essential tremor. 7. Dyslipidemia. 8. Prior occipital cerebrovascular accident. 9. BPH. 10. Hiatal hernia. 11. Dementia. 12. Obstructive sleep apnea. 13. History of abdominal hernia repair. 14. History of cochlear implant. 15. History of cardiac catheterization sometime around 2009 in [place], as per the patient's was negative. 16. History of varicose vein stripping. 17. Diabetic retinopathy in both eyes. 18. History of a 7-mm lung nodule diagnosed in 2013. MEDICATIONS: Include: 1. The patient had been started just on Mirabegron on 07/12/17, by his urologist. 2. He also has been on Humalog 75/25, 30 units in a.m., 25 in p.m. 3. Metformin 500 mg 2 times a day. 4. Primidone 50 mg 1 tablet in the morning and 2 at night, which is 100 mg at night. 5. Simvastatin 20 mg daily. 6. Metoprolol 25 mg b.i.d. 7. Alprazolam 0.25 mg q.p.m. p.r.n. 8. Fluoxetine 20 mg daily. 9. Tamsulosin 0.4 mg daily. 10. Hydrochlorothiazide 25 mg daily. 11. PreserVision 1 tablet daily. 12. Vitamin D3, 1000 units daily. 13. Stool softener, which is Colace 100 mg daily. 14. Proscar 5 mg daily. 15. Eliquis 5 mg b.i.d. 16. Seroquel 25 mg in p.m. 17. The patient had been on antibiotics for UTI/prostatitis per his urologist. 18. He was on cefuroxime started on 06/14/17 and ended the treatment on . At that point he was started on Cipro twice a day for 7 days, and he ended that treatment on the of this month. ALLERGIES TO MEDICATIONS: No known drug allergies. FAMILY HISTORY: Positive for mother with history of stroke and father with history of heart disease. SOCIAL HISTORY: The patient denies any current tobacco, alcohol, or drug use. His surrogate decision maker is his . He lives with his and had been taken care of by his up to this point. REVIEW OF SYSTEMS: Basically unobtainable from this patient who is very withdrawn and with flat affect. Per the patient's , the patient had been gradually less ambulatory for the past 1 month. They required 3 people to get him out of bed today. He has had urinary problems, checked by urologist a week ago and that had been "fine." His legs are swollen and weeping and that had been also ongoing for several months, but it had been worse recently. The patient has had poor appetite, but he did not lose any weight. He has been more disoriented than usual. The patient's also stated that the patient had been complaining of frequent headaches and occasional abdominal pain. Currently, the patient denies any headache or abdominal pain. All of the remaining 14 systems were reviewed with the patient's mostly and were otherwise negative. PHYSICAL EXAMINATION GENERAL: The patient is a pleasant 82-year-old male, who does not know where he is. He thinks that he is 49 years old. He remembers his date of . He is able to recognize his and when I asked him how long they are , he said "all my life." He appears to have flat affect and he is slow to respond. VITAL SIGNS: Blood pressure of 143/83, heart rate of 80 and regular, respiratory rate 20, oxygen saturation 100% on room air, temperature 97.5. HEENT: Head atraumatic, normocephalic. Eyes; pupils are equal and reactive to light and accommodation. Oropharynx clear. Mucosa moist. NECK: Supple. No JVD. No bruits bilaterally. RESPIRATORY: Clear to auscultation bilaterally. CARDIOVASCULAR: Irregularly irregular rhythm. No murmur. ABDOMEN: Soft, nontender. Bowel sounds present in all 4 quadrants. EXTREMITIES: There is +2 pitting pedal edema bilaterally. Pulses are +2 bilaterally. There is no clubbing or cyanosis. The patient has weeping blisters, some of them are opened. There are a couple of open areas on the left distal leg. There is no evidence of infection. There is one unopened blister approximately 4 cm in diameter noted on the right distal leg. NEURO: Speech is clear. Cranial nerves II through XII grossly intact. Motor strength is 5/5 bilaterally. The patient appears to have generalized truncal weakness and it is very difficult to get him out of bed. He was able to do that with 2 person assist and go to bedside commode. PSYCHIATRIC EVALUATION: Very flat affect and delayed speech. SKIN: In regards to the patient's skin, please see above. DIAGNOSTIC STUDIES/LAB DATA: White blood cell count of 11.2 which is chronic, hemoglobin of 14.6, hematocrit of 43, and platelets of 190,000. Sodium was 136, potassium was unfortunately not obtained, chloride 92, carbon dioxide 27, BUN 13, and creatinine 0.95. Liver function tests unremarkable. Lactic acid of 0.9. Troponin of 0.01. The patient's TSH was last checked on 09/20/[address] angiogram of the abdomen and pelvis, impression: "No CT evidence of acute __ ____ abnormality. Congenital bowel malrotation. The prostate is enlarged and heterogenous. Please correlate to physical examination. Additional chronic degenerative changes described in the report." CT of the brain, impression: "Chronic findings and postsurgical changes as described above. Not significantly changed since 07/15/17 CT of the brain." Portable chest x-ray, impression: "No radiographic evidence of acute cardiopulmonary abnormality." The patient's EKG showed atrial fibrillation with a heart rate of 81 beats per minute, nonspecific ST changes and no acute ST changes. Urinalysis was grossly within normal limits. ASSESSMENT AND PLAN: 1. An 82-year-old male with history of dementia, status post BEHAVIORAL THERAPIST shunt for normal pressure hydrocephalus with unsteady gait, generalized weakness, loss of appetite and disorientation. The patient's symptoms had been ongoing for over a month now. The patient is going to be placed on full admission due to that I do not express for the patient to be able to be discharged within 24 hours. He will require extensive physical therapy, occupational therapy, and likely placement in short- term rehabilitation. For the time being, the patient is going to be evaluated with shunt studies to observe the continuity of shunt. I also discussed the case with Dr. Titus, the neurosurgeon, who asked me to hold the patient's Eliquis for possibility of shunt tapping in the near future. Dr. Titus will see the patient in consultation in the morning. Also, Dr. Brown from Neurology will see the patient in consultation. Physical therapy and occupational therapy was also ordered. Please also note that there does not appear to be any acute pathology or toxin or infection that I could find that could explain the patient's current state. 2. In regards to the patient's hyponatremia. Exacerbation of chronic issue. The patient continues to be on hydrochlorothiazide that needs to be stopped. He appears mildly dehydrated, although his leg edema is rather significant. At this point, I will give him very mild hydration and stop his hydrochlorothiazide. I will place Eddie bandages on the patient's legs to increase venous return. 3. For leg blisters, I will ask for Xeroform dressings on a daily basis and Eddie bandages. 4. For the patient's diabetes, the patient is going to be placed on insulin sliding scale. We will continue observing. He may require long-term insulin during this hospital stay, although his sugars on presentation were rather low. 5. For DVT prophylaxis, the patient is going to be placed on sequential compression devices. Pharmacologic prophylaxis is not going to be carried on due to the need of shunt tapping within the next 24 hours. After that, likely Eliquis can be restarted. 6. For atrial fibrillation. The patient is going to be continued on metoprolol for rate controlled atrial fibrillation. Eliquis is going to be held for the next 24 hours for possibility of shunt tapping. 7. The patient's code status was discussed with the patient's family, they requested for the patient to be [id number]. The patient's MOLST that was already signed in the past is going to be extended throughout the patient's hospital stay. TIME SPENT: Approximately 78 minutes was spent on admission of this patient, more than half that time was spent [id number] with the patient during the interview and physical exam. [id number]/[facility] #: [id number] BREN[place]
[2017-07-15] MEDS: Acetaminophen TAB* 325 MG PO PRN (22:31)
[2017-07-15] MEDS ORDERED: Haloperidol INJ IV/IM* 5 MG/ML AMP IV SLOW PU ONE (23:18)
[2017-07-16] MEDS: Acetaminophen TAB* 325 MG PO PRN (05:10)
[2017-07-16] MEDS: Haloperidol INJ IV/IM* 5 MG/ML AMP IV SLOW PU PRN ×2 (05:10→13:40)
[2017-07-16] MEDS: Ondansetron INJ* 2 MG/ML VIAL IV PRN ×2 (06:38→13:08)
[2017-07-16] MEDS: Insulin LISPRO* 1 UNITS UNIT SUBCUT SCH ×4 (08:01→23:03)
[2017-07-16] MEDS: Primidone TAB(*) 50 MG PO SCH ×2 (08:02→16:51)
[2017-07-16] MEDS: Senna TAB PO SCH ×2 (08:02→23:05)
[2017-07-16] MEDS: Finasteride TAB* 5 MG PO SCH (08:02)
[2017-07-16] MEDS: FLUoxetine CAP* 20 MG PO SCH (08:02)
[2017-07-16] MEDS: Metoprolol Tartrate TAB* 25 MG PO SCH ×2 (08:03→23:04)
[2017-07-16] MEDS: Docusate CAP* 100 MG PO SCH ×2 (08:03→23:03)
[2017-07-16 10:44] LABS: Hematocrit 42 % (42-52); Hemoglobin 14.1 g/dl (14.0-18.0); Mean Corpuscular HGB Conc 33 g/dl (31-36); Mean Corpuscular Hemoglobin 29 pg (27-31); Mean Corpuscular Volume 88 fL (80-94); Mean Platelet Volume 9 um3 (7.4-10.4); Red Blood Count 4.83 10^6/ul (4.0-5.4); Red Cell Distribution Width 14 % (10.5-15)
[2017-07-16 11:03] LABS: BUN/Creatinine Ratio 13.8 (8-20); Blood Urea Nitrogen 13 mg/dL (6-24); CO2 Carbon Dioxide 24 mmol/L (22-32); Calcium 9.3 mg/dL (8.6-10.3); Chloride 97 mmol/L (101-111); EGFR African American 99.3 (>60); EGFR Non-African American 77.2 (>60); Glucose 246 mg/dL (70-100); Sodium 129 mmol/L (133-145)
--- NOTE | 2017-07-16 12:05 | CONSULT ---
Consult Consult: Neurosurgery Consult Date of admission: 07/15/17 Date of consult: 07/16/17 Referring provider: Loren Lazar MD Reason for consult: Normal pressure hydrocephalus HPI: This is an 82 year old male with past medical history significant for normal pressure hydrocephalus s/p BIOINFORMATICS PROGRAMMER shunt placement in May [address] Titus, atrial fibrillation, HTN, diabetes type II, and BPH, who presented to the [facility] ED for complaint of nausea and abdominal pain without vomiting after eating for the past week. His was present for the interview and provides the entire history. He has had a poor appetite, especially in the past 2 weeks, but she has not noticed recent weight loss. He also frequently has the urge to urinate or defecate. He does frequently urinate small volumes although typically has only one bowel movement daily. The patient's also is concerned with the patient's mental status changes , gait instability, and urinary frequency. He has a history of BIOINFORMATICS PROGRAMMER shunt [place] [address] Titus and therefore neurosurgery was consulted to evaluate BIOINFORMATICS PROGRAMMER shunt function. The patient's states that prior to shunt placement, he was experiencing frequent falls and having some difficulty with ambulation. She does not recall memory, mental status issues, or significant urinary symptoms at the time. After surgery in 2014, he recovered well and falls decreased in frequency. The mental status changes have been primarily related to short term memory loss and mood changes which have been worsening over the past few months. The patient's states that he has become verbally abusive to her with demands and is "needy", frequently requiring her assistance and repeating questions. She states that he does understand her responses and what she asks of him. He has also had significant difficulty sleeping. She states that in the past, he slept throughout the day and poorly at night. Now he is unable to sleep during the day or at night. She believes they only get approximately one hour of sleep during the night. He needs to get up frequently to urinate. The gait changes have been worsening over the past couple of months as well. The patient's states that he began using a cane for support approximately 1.5 years ago and recently needed to start using a walker because he was so unsteady. She states that he has strength in his legs, he is just unable to walk well. He did have a recent fall 1 week ago for which they did not seek medical evaluation. The urinary frequency has been present for quite some time although his reports recent worsening. He needs to urinate numerous times throughout the night and day. He is able to urinate small volumes (approximately 50 cc) each time. He does have occasional urinary incontinence. His denies fecal incontinence although he does frequently have the urge to defecate. He has a history of BPH for which he was following with a urologist in [place] and underwent TURP in 2012. He followed up with Dr. Villa in [place] recently and , per the patient's , he did not believe additional procedures were necessary. He was treated for a UTI and new medication was started. He has a recent history of frequent UTIs, 5-6 since October per the patient's . Most recently he was treated with Cipro for 7 days, with this past Monday being the day of his last dose. The patient's also reports more frequent headaches for the past month. She states that the patient indicates headache of the entire head occurring without trigger almost daily and lasting several hours. Headache is improved with tylenol although symptom always returns. He did have an episode of vision loss approximately one month ago for which he was admitted to [facility] for evaluation which has resolved and not recurred. The patient and his deny fever, recent illness, difficulty swallowing, changes in speech, slurring words , chest pain, difficulty breathing, shortness of breath, blood in stool. Denies numbness, tingling weakness and pain in the lower extremities. Reports numbness and aching in the right upper extremity but denies weakness and pain bilaterally. Also reports episodes of sweats and chills. He follows with Dr. Rodriguez for the essential tremor. He does have hearing loss with right cochlear implant. Past medical history: 1. NPH with BIOINFORMATICS PROGRAMMER shunt [place] [address] Titus 2. Atrial fibrillation, taking Eliquis now being held for procedure 3. HTN 4. Diabetes type II 5. Urinary incontinence and retention 6. BPH 7. Dyslipidemia 8. Essential tremor 9. Hiatal hernia 10. Dementia 11. Cochlear implant 12. Diabetic retinopathy bilaterally 13. Occipital CVA 14. Lung nodule Past surgical and procedural history: 1. BIOINFORMATICS PROGRAMMER shunt placement 2014 2. Cardiac catheterization 2009 3. Cochlear implant 4. TURP in [place] 2012 Home medications: 1. Simvastatin TAB(NF) [Zocor 20 MG (NF)] 20 mg PO DAILY 07/14/14 [History Confirmed 07/15/17] 2. ALPRAZolam TAB* [Xanax TAB*] 0.25 mg PO BEDTIME PRN 07/13/15 [History Confirmed 07/15/17] 3. Cholecalciferol [Vitamin D3] 1,000 unit PO QAM 08/27/15 [History Confirmed ] 4. Insulin Lispro Protamine & Lis [Humalog Mix 75/25 Kwikpen (75-25) 100 Unit/ml ] 25 units SUBCUT QPM 08/27/15 [History Confirmed 07/15/17] 5. Insulin Lispro Protamine & Lis [Humalog Mix 75/25 Kwikpen (75-25) 100 Unit/ml ] 30 units SUBCUT QAM 08/27/15 [History Confirmed 07/15/17] 6. Oxybutynin XL TAB* [Ditropan Xl TAB*] 10 mg PO DAILY 08/27/15 [History Confirmed 07/15/17] 7. Primidone TAB(*) [Mysoline TAB(*)] 50 mg PO QAM 08/27/15 [History Confirmed 07/15/17] 8. Primidone TAB(*) [Mysoline TAB(*)] 100 mg PO QPM 08/27/15 [History Confirmed 07/15/17] 9. metFORMIN* [Glucophage 500 MG TAB *] 500 mg PO TID 08/27/15 [History Confirmed 07/15/17] 10. Apixaban* [Eliquis*] 5 mg PO BID 06/14/17 [History Confirmed 07/15/17] 11. Docusate Sodium [Stool Softener] 100 mg PO QPM 06/14/17 [History Confirmed 07/15/17] 12. Finasteride TAB* [Proscar TAB*] 5 mg PO DAILY 06/14/17 [History Confirmed ] 13. Fluoxetine HCl [Prozac] 20 mg PO DAILY 06/14/17 [History Confirmed 07/15/17] 14. Hydrochlorothiazide TAB* [Hydrodiuril TAB*] 25 mg PO DAILY 06/14/17 [ History Confirmed 07/15/17] 15. Metoprolol Tartrate TAB* [Lopressor TAB*] 25 mg PO BID 06/14/17 [History Confirmed 07/15/17] 16. Multiple Vitamins W/ Minerals [Preservision Areds 2 + Mu] 1 cap PO DAILY [History Confirmed 07/15/17] 17. Tamsulosin CAP* [Flomax CAP*] 0.4 mg PO BEDTIME 06/14/17 [History Confirmed 07/15/17] Allergies: None Social history: This patient has a history of smoking, quit in 1962. He does not consume alcohol. He lives at home with his . Visiting nurse comes to the house twice per week and an aide comes twice per week. ROS: Full ROS completed. Patient and his contributed to the ROS. Pertinent findings stated in HPI and all others negative. Physical exam: Vital Signs: Temp Pulse Resp BP Pulse Ox 97.4 F 81 18 150/78 96 07/16/17 07:32 07/16/17 07:32 07/16/17 08:00 07/16/17 07:32 07/16/17 07:32 General: Patient is alert although does not participate well in interview and conversation. Oriented to self. Sitting comfortably in chair. HEENT: BIOINFORMATICS PROGRAMMER shunt valve palpable beneath the left frontal scalp, nontender. No erythema, swelling, warmth or ecchymosis of the valve area. PERRL, EOMI, sclerae anicteric. Gross hearing diminished, cochlear implant in place to right ear. Moist mucus membranes. Neck: Supple, symmetric. Nontender to palpation of posterior and anterior neck. CV: Irregular rate. Radial pulses palpable. Pedal pulses unable to palpate secondary to edema bilaterally. Lungs: Breathing is nonlabored. Lungs are clear. Abdomen: The abdomen is moderately rounded. Hypoactive bowel sounds. Abdomen is nondistended, nontender. Neuro: Speech is clear and coherent. Able to follow commands throughout exam. Able to answer most questions appropriately although is slow to respond. Oriented to self and hospital. Able to name 3 objects, unable to recall objects. Strength in upper extremities 5/5 bilaterally. Strength in lower extremities 5/5 bilaterally. Sensation intact. Shuffling gait with assistance of walker. Negative pronator drift. Finger to nose coordination is slightly delayed. DTR intact. Extremities. Pedal edema bilaterally. Wounds present to bilateral lower extremities. Imagin. CT brain on 07/15/17 shows hydrocephalus with shunt catheter entering anterior horn of the left lateral ventricle. Assessment and Plan: This is an 82 year old male with multiple medication conditions who presented to the [facility] ED for evaluation of abdominal pain and nausea but also complained of gait instability, mental status changes and urinary frequency worse for the past couple of months. He has a history of BIOINFORMATICS PROGRAMMER shunt [place] [address] brain obtained on 07/15 shows hydrocephalus with shunt catheter entering the left lateral ventricle. Considering the patient's symptoms have worsened recently in the presence of an existing BIOINFORMATICS PROGRAMMER shunt, he will need the shunt tapped to draw off fluid for evaluation. The Eliquis needs to be held for at least 24 hours prior to this procedure; BIOINFORMATICS PROGRAMMER shunt tap likely tomorrow morning. This case has been discussed and plan formulated with Dr. Titus. The plan has also been discussed with Dr. Lazar. I have briefly discussed shunt tap with the patient and his .
[2017-07-16 12:24] LABS: Anion Gap 8 mmol/L (2-11)
[2017-07-16 12:41] LABS: C Reactive Protein 23.06 mg/L (< 5.00)
--- NOTE | 2017-07-16 14:06 | PN ---
Subjective Date of Service: 07/16/17 Interval History: pt received Haldol for agitation last night. Today still restless. Seen by neurosurgical PA. Planned for shunt tap tomorrow Occasionally c/o headache and nausea as per d/w RN, right now no complaints. Continues to want to urinate. Post void residual 15 ml Objective Active Medications: Acetaminophen (Tylenol Tab*) 650 mg PO Q4H PRN PRN Reason: FEVER/PAIN Last Admin: 07/16/17 05:10 Dose: 650 mg Alprazolam (Xanax Tab*) 0.25 mg PO BEDTIME PRN PRN Reason: ANXIETY Last Admin: 07/15/17 21:47 Dose: 0.25 mg Dextrose (D50w Syringe 50 Ml*) 12.5 gm IV PUSH .FOR FS < 60 - SS PRN PRN Reason: FS < 60 Docusate Sodium (Colace Cap*) 100 mg PO BID [facility] Last Admin: 07/16/17 08:03 Dose: 100 mg Finasteride (Proscar Tab*) 5 mg PO DAILY [facility] Last Admin: 07/16/17 08:02 Dose: 5 mg Fluoxetine HCl (Prozac Cap*) 20 mg PO DAILY [facility] Last Admin: 07/16/17 08:02 Dose: 20 mg Haloperidol Lactate (Haldol Inj Iv/Im*) 2 mg IV SLOW PU Q6H PRN PRN Reason: AGITATION Last Admin: 07/16/17 05:10 Dose: 2 mg Insulin Human Lispro (Humalog*) 0 units SUBCUT ACHS [facility] PRN Reason: Protocol Last Admin: 07/16/17 13:06 Dose: 4 units Metoprolol Tartrate (Lopressor Tab*) 25 mg PO BID [facility] Last Admin: 07/16/17 08:03 Dose: 25 mg Ondansetron HCl (Zofran Inj*) 4 mg IV Q6H PRN PRN Reason: NAUSEA Last Admin: 07/16/17 13:08 Dose: 4 mg Oxycodone/Acetaminophen (Percocet 5/325 Tab*) 1 tab PO Q4H PRN PRN Reason: PAIN Primidone (Mysoline Tab(*)) 50 mg PO QAM [facility] Last Admin: 07/16/17 08:02 Dose: 50 mg Primidone (Mysoline Tab(*)) 100 mg PO QPM [facility] Senna (Senokot Tab*) 1 tab PO BID [facility] Last Admin: 07/16/17 08:02 Dose: 1 tab Tamsulosin HCl (Flomax Cap*) 0.4 mg PO BEDTIME [facility] Last Admin: 07/15/17 21:47 Dose: 0.4 mg Vital Signs 07/15/17 07/15/17 07/15/17 18:15 20:00 21:47 Temperature 97.5 F Pulse Rate 80 Respiratory 20 19 19 Rate Blood Pressure 143/83 (mmHg) O2 Sat by Pulse 100 Oximetry 07/15/17 07/16/17 07/16/17 23:47 02:04 04:42 Temperature 97.5 F 98.0 F Pulse Rate 107 106 Respiratory 20 16 16 Rate Blood Pressure 143/71 148/68 (mmHg) O2 Sat by Pulse 97 99 Oximetry 07/16/17 07/16/17 07/16/17 07:08 07:32 08:00 Temperature 97.6 F 97.4 F Pulse Rate 133 81 Respiratory 16 18 Rate Blood Pressure 149/90 150/78 (mmHg) O2 Sat by Pulse 98 96 Oximetry Oxygen Devices in Use Now: None Appearance: 82 yo M in nAD, disoriented, responds to his name, very [place]. Eyes: No Scleral Icterus, PERRLA Ears/Nose/Mouth/Throat: NL Teeth, Lips, Gums, Mucous Membranes Moist, - - cochlear implant in R temporal area Neck: NL Appearance and Movements; NL JVP, Trachea Midline Respiratory: Symmetrical Chest Expansion and Respiratory Effort, Clear to Auscultation Cardiovascular: - - irreguar Abdominal: NL Sounds; No Tenderness; No Distention, No Hepatosplenomegaly Lymphatic: No Cervical Adenopathy Extremities: No Clubbing, Cyanosis, - - +2 pitting pedal edema Skin: No Nodules or Sclerosis, - - two leg bilsters filled with serous fluid in distal LE's Neurological: - - generalized weakness, no focal deficit noted, speech clear, very [place] Result Diagrams: 07/16/17 10:33 07/16/17 10:33 Additional Lab and Data: Lab Results 07/15/17 07/15/17 07/15/17 Range/Units 13:47 13:47 13:47 WBC 11.2 H (3.5-10.8) 10^3/ul RBC 4.92 (4.0-5.4) 10^6/ul Hgb 14.6 (14.0-18.0) g/dl Hct 43 (42-52) % MCV 87 (80-94) fL MCH 30 (27-31) pg MCHC 34 (31-36) g/dl RDW 14 (10.5-15) % Plt Count 190 (150-450) 10^3/ul MPV 10 (7.4-10.4) um3 Neut % (Auto) 63.8 (38-83) % Lymph % (Auto) 23.3 L (25-47) % [place] % (Auto) 11.4 H (1-9) % Eos % (Auto) 0.8 (0-6) % Baso % (Auto) 0.7 (0-2) % Absolute Neuts (auto) 7.2 (1.5-7.7) 10^3/ul Absolute Lymphs (auto) 2.6 (1.0-4.8) 10^3/ul Absolute Monos (auto) 1.3 H (0-0.8) 10^3/ul Absolute Eos (auto) 0.1 (0-0.6) 10^3/ul Absolute Basos (auto) 0.1 (0-0.2) 10^3/ul Absolute Nucleated RBC 0.01 10^3/ul Nucleated RBC % 0.1 Sodium 126 L (133-145) mmol/L Potassium TNP Chloride 92 L (101-111) mmol/L Carbon Dioxide 27 (22-32) mmol/L Anion Gap 7 (2-11) mmol/L BUN 13 (6-24) mg/dL Creatinine 0.95 (0.67-1.17) mg/dL Est GFR ( Amer) 98.1 (>60) Est GFR (Non-Af Amer) 76.3 (>60) BUN/Creatinine Ratio 13.7 (8-20) Glucose 158 H (70-100) mg/dL Lactic Acid 0.9 (0.5-2.0) mmol/L Calcium 9.6 (8.6-10.3) mg/dL Total Bilirubin 0.50 (0.2-1.0) mg/dL AST TNP ALT 17 (7-52) U/L Alkaline Phosphatase 68 (34-104) U/L Troponin I 0.01 (<0.04) ng/mL Total Protein 6.8 (6.4-8.9) g/dL Albumin 3.9 (3.2-5.2) g/dL Globulin 2.9 (2-4) g/dL Albumin/Globulin Ratio 1.3 (1-3) Urine Color Urine Appearance Urine pH (5-9) Ur Specific [place] (1.010-1.030) Urine Protein (Negative) Urine Ketones (Negative) Urine Blood (Negative) Urine Nitrate (Negative) Urine Bilirubin (Negative) Urine Urobilinogen (Negative) Ur Leukocyte Esterase (Negative) Urine Glucose (Negative) 07/15/17 Range/Units 16:27 WBC (3.5-10.8) 10^3/ul RBC (4.0-5.4) 10^6/ul Hgb (14.0-18.0) g/dl Hct (42-52) % MCV (80-94) fL MCH (27-31) pg MCHC (31-36) g/dl RDW (10.5-15) % Plt Count (150-450) 10^3/ul MPV (7.4-10.4) um3 Neut % (Auto) (38-83) % Lymph % (Auto) (25-47) % [place] % (Auto) (1-9) % Eos % (Auto) (0-6) % Baso % (Auto) (0-2) % Absolute Neuts (auto) (1.5-7.7) 10^3/ul Absolute Lymphs (auto) (1.0-4.8) 10^3/ul Absolute Monos (auto) (0-0.8) 10^3/ul Absolute Eos (auto) (0-0.6) 10^3/ul Absolute Basos (auto) (0-0.2) 10^3/ul Absolute Nucleated RBC 10^3/ul Nucleated RBC % Sodium (133-145) mmol/L Potassium Chloride (101-111) mmol/L Carbon Dioxide (22-32) mmol/L Anion Gap (2-11) mmol/L BUN (6-24) mg/dL Creatinine (0.67-1.17) mg/dL Est GFR ( Amer) (>60) Est GFR (Non-Af Amer) (>60) BUN/Creatinine Ratio (8-20) Glucose (70-100) mg/dL Lactic Acid (0.5-2.0) mmol/L Calcium (8.6-10.3) mg/dL Total Bilirubin (0.2-1.0) mg/dL AST ALT (7-52) U/L Alkaline Phosphatase (34-104) U/L Troponin I (<0.04) ng/mL Total Protein (6.4-8.9) g/dL Albumin (3.2-5.2) g/dL Globulin (2-4) g/dL Albumin/Globulin Ratio (1-3) Urine Color Yellow Urine Appearance Clear Urine pH 7.0 (5-9) Ur Specific [place] 1.013 (1.010-1.030) Urine Protein Negative (Negative) Urine Ketones Negative (Negative) Urine Blood Negative (Negative) Urine Nitrate Negative (Negative) Urine Bilirubin Negative (Negative) Urine Urobilinogen Negative (Negative) Ur Leukocyte Esterase Negative (Negative) Urine Glucose Negative (Negative) Assess/Plan/Problems-Billing Assessment: 82 yo M with h/o chronic A. fib (on eliquis), NPH (s/p JIGGER ARTISAN shunt in 2015), cochlear implant , dementia presents with worsening generalized weakness , confusion, intermittent headache and intermittent nausea/abd pain x 1 month - Patient Problems (1) Altered mental state Comment: Encephalopathy and sundowning. Pt's symptoms may be due to advanced dementia, but other etiologies have to be r/o. Appreciate neurology and neurosurery evaluation. will start nightly low dose Haldol PO JIGGER ARTISAN shunt tap scheduled for aM (2) Hyponatremia Comment: due to mild dehydration and HCTZ use. Improved. HCTZ stopped at admission (3) Leukocytosis Comment: chronic . No sign of infection. CRP only mildly elevated (4) Type 2 diabetes mellitus Comment: continue Lispro SS.will add Lantus NPH/metformin on hold (5) S/P JIGGER ARTISAN shunt Comment: Neurosurgery will tap tomorrow. Off Eliquis for the procedure (6) Atrial fibrillation Comment: chronic, rate controled with lopressor Off Eliquis for shunt tap (7) Leg edema Comment: suspect venous stasis Cont CAM badages daily (8) Essential tremor Comment: cont primidone (9) DVT prophylaxis Comment: HSQ (10) DNR (do not resuscitate) Status and Disposition: inpatient
[2017-07-16] MEDS ORDERED: Insulin GLARGINE(*) 1 UNITS UNIT SUBCUT SCH (15:00)
[2017-07-16] MEDS: Heparin VIAL(*) 5000 UNITS/ML VIAL (FIVE THOUSAND) SUBCUT SCH ×2 (16:51→23:02)
[2017-07-16] MEDS ORDERED: Metoprolol Tartrate IV* 1 MG/ML 5 ML VIAL IV PRN (18:16)
[2017-07-16] MEDS ORDERED: Metoprolol Tartrate IV* 1 MG/ML 5 ML VIAL ONE (18:25)
[2017-07-16] MEDS ORDERED: Lisinopril TAB* 10 MG ONE (18:25)
[2017-07-16] MEDS: Lisinopril TAB* 10 MG PO SCH (18:31)
--- NOTE | 2017-07-16 21:30 | CONS ---
CONSULTATION REPORT: DATE OF CONSULT: 07/16/2017. PATIENT OF: Dr. Lazar, Dr. Titus, Dr. Villa, and Dr. Henderson PRIMARY CARE DOCTOR: Dr. Henderson. HISTORY OF PRESENT ILLNESS: This is an 82-year-old man, I am asked to evaluate for a more recent change in neurological status. He had a shunt for hydrocephalus in 2014, but since then he has continued to have some progressive memory loss slowly over the past 2 years, but more rapidly in the past 2 months and even 2 weeks. He about a month ago was hospitalized in [facility] for visual loss which his notes had complete visual loss, lasting for about 30 minutes to an hour, and on exam then he had a right upper quadrant anopsia because his visual loss only lasted for about 30 minutes. He was thought to have a stroke and after short period where he was off the Eliquis, he was restarted on the Eliquis. In the past several weeks, he has had progressive headaches and nausea. He has also had some walking difficulty. He apparently had difficulty walking prior to his shunt in 2014 and he is having difficulty walking in the past few days time. I spoke to Dr. Sommer last night and recommended that he contact Dr. Titus, but his most treatable cause would be shunt problem, although other etiologies are considerable and Dr. Titus contacted. If they were going to do a procedure, we may need to hold the Eliquis, but we defer to Dr. Titus regarding that. He has a history of atrial fibrillation, it is chronic, hypertension, normal pressure hydrocephalus, status post shunt in 2014, urinary incontinence, urinary retention and this has been chronic for the past year. He has had polyps, history of diabetes type 2, essential tremor, dyslipidemia, prior occipital cerebrovascular stroke, BPH, hiatal hernia, dementia, obstructive sleep apnea, abdominal herniorrhaphy, cochlear implant, cardiac cath. There was negative diabetic retinopathy and a 7-mm lung nodule diagnosed in 2013. MEDICATIONS AT HOME: Includes: 1. Mirabegron on July 12. 2. Humalog 75/25/30 in the morning, 25 at night. 3. Metformin 500 mg 2 times a day. 4. Primidone 50 mg in the morning, 100 mg at night. 5. Simvastatin 20 mg daily. 6. Metoprolol 25 mg b.i.d. 7. Alprazolam 0.25 mg p.r.n. 8. Fluoxetine 20 mg daily. 9. Tamsulosin 0.4 mg daily. 10. Hydrochlorothiazide 25 mg daily. 11. PreserVision 1 tablet daily. 12. Eliquis 5 mg b.i.d. 13. Seroquel 25 mg in the morning. He had been on antibiotics for UTI prostatitis. He has recently been on Cipro and it stopped on July 09. ALLERGIES: No known allergies. FAMILY HISTORY: Positive for mother with stroke and father with heart disease. SOCIAL HISTORY: He does not smoke, drink, or use drugs. He lives with his . REVIEW OF SYSTEMS: Review of systems is limited because of his dementia, but his notes that he has frequent headaches and nausea on a daily basis, that has been getting worse as well as his memory, which commented on before. PHYSICAL EXAM: Temperature 97.4, pulse 81, respirations 18, blood pressure 150/ 78. He was alert. He knew his first and last name. He did not know his age, but he knew his birthday. He did not know that he was in the hospital. He could follow a one-step commands on occasion and tended to perseverate. Cranial nerves II through XII were nonfocal. Fundi showed intact red reflex. He did not cooperate with detailed funduscopic exam. He had coarse intention tremor bilaterally, which was unchanged. Strength was at least 5-/5, but he needed to be coaxed. Reflexes were 3 and equal in arms and legs. Toes were equivocal to downgoing. Chest: Clear. Cardiovascular: Regular rate and rhythm. Abdomen: Soft. He had bilateral pedal edema, which is chronic for him. DIAGNOSTIC STUDIES/LAB DATA: I reviewed his CT scans and his CT scan from 07/15 showed evidence of his shunts and stable encephalomalacia. There was no recent change in ventricular size compared to scans he had a month ago, but looking back to 2014 apparently after his shunt, his ventricles looked somewhat more full now, this is soft impression, but I think it is accurate. His shunt series was negative. His chest x-ray showed no acute disease. His labs included white count was stable 11.2, today 15; hematocrit of 42; platelet count of 195. Sodium today 129, it had been 126 yesterday; normal BUN and creatinine; glucose 246 today. His ALT was 17, alk phos 68, total protein 6.8. He had calcium of 9.6. He has had normal B12 a month ago and his thyroid had a normal TSH, but a T4 of 1.26. His folate and homocysteine was normal a month ago. His UA was normal. IMPRESSION: It is possible that he has another infection brewing since he recently came off antibiotics and he has gotten worse, but his overall picture sounds like a decline over a couple years, this accelerates decline over the past 2 months and then past week or 2, this may just be natural progression of dementia, but most treatable thing would be a partial shunt malfunction, and Dr. Titus will be evaluating. I have recommended to check pneumonia and if we do not find answer either with infection or problem with the shunt, then we can check an EEG tomorrow to get further information, but it is just seems like a diffuse process, but is unlikely that lead to anything clearly treatable. Thank you for sharing his case. [id number]/[facility] #: [id number] [place]
[2017-07-16] MEDS: Clotrimazole/Betamethasone CREAM* 15 GM TOPICAL SCH (23:01)
[2017-07-16] MEDS: Tamsulosin CAP* 0.4 MG PO SCH (23:05)
[2017-07-16] MEDS: Haloperidol TAB* 1 MG PO PRN (23:58)
[2017-07-16] MEDS: ALPRAZolam TAB* 0.25 MG PO PRN (23:58)
[2017-07-17 06:50] LABS: Hematocrit 42 % (42-52); Hemoglobin 14.2 g/dl (14.0-18.0); Mean Corpuscular HGB Conc 34 g/dl (31-36); Mean Corpuscular Hemoglobin 30 pg (27-31); Mean Corpuscular Volume 87 fL (80-94); Mean Platelet Volume 9 um3 (7.4-10.4); Red Blood Count 4.81 10^6/ul (4.0-5.4); Red Cell Distribution Width 14 % (10.5-15)
[2017-07-17 06:53] LABS: Add Diff/Slide Review? Slide Review Added; Comments Flag Yes
[2017-07-17 07:04] LABS: BUN/Creatinine Ratio 12.1 (8-20); Calcium 9.3 mg/dL (8.6-10.3); EGFR African American 103.1 (>60); EGFR Non-African American 80.2 (>60); Potassium 3.9 mmol/L (3.5-5.0)
[2017-07-17] MEDS: Metoprolol Tartrate TAB* 25 MG PO SCH (08:04)
[2017-07-17] MEDS: Senna TAB PO SCH (09:23)
[2017-07-17] MEDS: FLUoxetine CAP* 20 MG PO SCH (09:24)
[2017-07-17] MEDS: Docusate CAP* 100 MG PO SCH (09:24)
[2017-07-17] MEDS: Primidone TAB(*) 50 MG PO SCH ×2 (09:24→17:46)
[2017-07-17] MEDS: Lisinopril TAB* 10 MG PO SCH (09:25)
[2017-07-17] MEDS: Finasteride TAB* 5 MG PO SCH (09:25)
[2017-07-17] MEDS: Insulin LISPRO* 1 UNITS UNIT SUBCUT SCH ×4 (09:25→23:55)
[2017-07-17 10:10] LABS: CSF Glucose 121 mg/dL (40-70)
[2017-07-17 10:12] LABS: Body Fluid Appearance Clear
[2017-07-17 10:14] LABS: BF RBC Count #1 0; BF WBC Count #1 0
[2017-07-17 10:15] LABS: BF RBC Count #2 0; BF WBC Count #2 0; Body Fluid WBC 0 /mcL; RBC counts within 6%? Yes; WBC counts within 15%? Yes
[2017-07-17 10:50] LABS: Body Fluid Total Cells Counted 0
[2017-07-17] MEDS ORDERED: Metoprolol Tartrate TAB* 25 MG PO ONE (11:55)
[2017-07-17] MEDS: Clotrimazole/Betamethasone CREAM* 15 GM TOPICAL SCH (13:46)
[2017-07-17] MEDS: ALPRAZolam TAB* 0.25 MG PO PRN (14:23)
--- NOTE | 2017-07-17 14:33 | PN ---
Subjective Date of Service: 07/17/17 Interval History: pt continues to be confused and picking at things. Continues to request multiple things and having many complaints including headaches and abd pain, then resolve spontaneously rarely requiring intervention.Spoke with pt's and counseled her that at leas part of pt's complaints may not be physiological but driven by his dementia and disorientation and the need to have someone around. Shunt was tapped today, pressures not increased. Labs pending Objective Active Medications: Acetaminophen (Tylenol Tab*) 650 mg PO Q4H PRN PRN Reason: FEVER/PAIN Last Admin: 07/16/17 05:10 Dose: 650 mg Alprazolam (Xanax Tab*) 0.25 mg PO BEDTIME PRN PRN Reason: ANXIETY Last Admin: 07/17/17 14:23 Dose: 0.25 mg Betamethasone/Clotrimazole (Lotrisone Cream*) 1 applic TOPICAL BID [facility] Last Admin: 07/17/17 13:46 Dose: 1 applic Dextrose (D50w Syringe 50 Ml*) 12.5 gm IV PUSH .FOR FS < 60 - SS PRN PRN Reason: FS < 60 Docusate Sodium (Colace Cap*) 100 mg PO BID [facility] Last Admin: 07/17/17 09:24 Dose: 100 mg Finasteride (Proscar Tab*) 5 mg PO DAILY [facility] Last Admin: 07/17/17 09:25 Dose: 5 mg Fluoxetine HCl (Prozac Cap*) 20 mg PO DAILY [facility] Last Admin: 07/17/17 09:24 Dose: 20 mg Haloperidol (Haldol Tab*) 1 mg PO BEDTIME PRN PRN Reason: AGITATION Last Admin: 07/16/17 23:58 Dose: 1 mg Insulin Glargine (Lantus(*)) 5 units SUBCUT Q24H [facility] Last Admin: 07/16/17 16:50 Dose: 5 units Insulin Human Lispro (Humalog*) 0 units SUBCUT ACHS [facility] PRN Reason: Protocol Last Admin: 07/17/17 13:44 Dose: 6 units Lisinopril (Prinivil Tab*) 10 mg PO DAILY [facility] Last Admin: 07/17/17 09:25 Dose: 10 mg Metoprolol Tartrate (Lopressor Iv*) 5 mg IV Q6H PRN PRN Reason: BLOOD PRESSURE Last Admin: 07/16/17 18:30 Dose: 5 mg Metoprolol Tartrate (Lopressor Tab*) 50 mg PO BID [facility] Ondansetron HCl (Zofran Inj*) 4 mg IV Q6H PRN PRN Reason: NAUSEA Last Admin: 07/16/17 13:08 Dose: 4 mg Oxycodone/Acetaminophen (Percocet 5/325 Tab*) 1 tab PO Q4H PRN PRN Reason: PAIN Primidone (Mysoline Tab(*)) 50 mg PO QAM [facility] Last Admin: 07/17/17 09:24 Dose: 50 mg Primidone (Mysoline Tab(*)) 100 mg PO QPM [facility] Last Admin: 07/16/17 16:51 Dose: 100 mg Senna (Senokot Tab*) 1 tab PO BID [facility] Last Admin: 07/17/17 09:23 Dose: 1 tab Tamsulosin HCl (Flomax Cap*) 0.4 mg PO BEDTIME [facility] Last Admin: 07/16/17 23:05 Dose: 0.4 mg Vital Signs 07/16/17 07/16/17 07/16/17 18:03 18:11 18:14 Temperature 98.4 F Pulse Rate 89 111 Respiratory 18 Rate Blood Pressure 186/91 185/84 180/96 (mmHg) O2 Sat by Pulse 100 Oximetry 07/16/17 07/16/17 07/16/17 19:48 20:00 23:58 Temperature 97.7 F Pulse Rate 155 Respiratory 20 20 20 Rate Blood Pressure 163/80 (mmHg) O2 Sat by Pulse 98 Oximetry 07/17/17 07/17/17 07/17/17 01:58 05:25 07:53 Temperature 98.2 F Pulse Rate 92 98 Respiratory 20 20 18 Rate Blood Pressure 141/103 147/100 (mmHg) O2 Sat by Pulse 97 96 Oximetry 07/17/17 07/17/17 07/17/17 08:00 11:31 14:23 Temperature 97.9 F Pulse Rate 89 Respiratory 16 17 16 Rate Blood Pressure 185/83 (mmHg) O2 Sat by Pulse 97 Oximetry Oxygen Devices in Use Now: None Appearance: 82 yo M in nAD, oriented to self , recognizes his , disoriented to his age and place Eyes: No Scleral Icterus, PERRLA Ears/Nose/Mouth/Throat: NL Teeth, Lips, Gums, Mucous Membranes Moist Neck: NL Appearance and Movements; NL JVP, Trachea Midline Respiratory: Symmetrical Chest Expansion and Respiratory Effort, Clear to Auscultation Cardiovascular: - - irregular Abdominal: NL Sounds; No Tenderness; No Distention, No Hepatosplenomegaly Lymphatic: No Cervical Adenopathy Extremities: No Clubbing, Cyanosis, - - leg edema markedly improved after CAM bandages-doen to trace b/l Skin: - - b/l LE's blister on R leg and ruptured blister on distal left leg- with scant skin irritation, no cellulitis Neurological: NL Muscle Strength and Tone, - - very unsteady on feet, unable to stand without assit, no focal weakness, R cochlear implant in place Result Diagrams: 07/17/17 06:43 07/17/17 06:43 Additional Lab and Data: Lab Results 07/15/17 07/15/17 07/15/17 Range/Units 13:47 13:47 13:47 WBC 11.2 H (3.5-10.8) 10^3/ul RBC 4.92 (4.0-5.4) 10^6/ul Hgb 14.6 (14.0-18.0) g/dl Hct 43 (42-52) % MCV 87 (80-94) fL MCH 30 (27-31) pg MCHC 34 (31-36) g/dl RDW 14 (10.5-15) % Plt Count 190 (150-450) 10^3/ul MPV 10 (7.4-10.4) um3 Neut % (Auto) 63.8 (38-83) % Lymph % (Auto) 23.3 L (25-47) % [place] % (Auto) 11.4 H (1-9) % Eos % (Auto) 0.8 (0-6) % Baso % (Auto) 0.7 (0-2) % Absolute Neuts (auto) 7.2 (1.5-7.7) 10^3/ul Absolute Lymphs (auto) 2.6 (1.0-4.8) 10^3/ul Absolute Monos (auto) 1.3 H (0-0.8) 10^3/ul Absolute Eos (auto) 0.1 (0-0.6) 10^3/ul Absolute Basos (auto) 0.1 (0-0.2) 10^3/ul Absolute Nucleated RBC 0.01 10^3/ul Nucleated RBC % 0.1 Sodium 126 L (133-145) mmol/L Potassium TNP Chloride 92 L (101-111) mmol/L Carbon Dioxide 27 (22-32) mmol/L Anion Gap 7 (2-11) mmol/L BUN 13 (6-24) mg/dL Creatinine 0.95 (0.67-1.17) mg/dL Est GFR ( Amer) 98.1 (>60) Est GFR (Non-Af Amer) 76.3 (>60) BUN/Creatinine Ratio 13.7 (8-20) Glucose 158 H (70-100) mg/dL Lactic Acid 0.9 (0.5-2.0) mmol/L Calcium 9.6 (8.6-10.3) mg/dL Total Bilirubin 0.50 (0.2-1.0) mg/dL AST TNP ALT 17 (7-52) U/L Alkaline Phosphatase 68 (34-104) U/L Troponin I 0.01 (<0.04) ng/mL Total Protein 6.8 (6.4-8.9) g/dL Albumin 3.9 (3.2-5.2) g/dL Globulin 2.9 (2-4) g/dL Albumin/Globulin Ratio 1.3 (1-3) Urine Color Urine Appearance Urine pH (5-9) Ur Specific [place] (1.010-1.030) Urine Protein (Negative) Urine Ketones (Negative) Urine Blood (Negative) Urine Nitrate (Negative) Urine Bilirubin (Negative) Urine Urobilinogen (Negative) Ur Leukocyte Esterase (Negative) Urine Glucose (Negative) 07/15/17 Range/Units 16:27 WBC (3.5-10.8) 10^3/ul RBC (4.0-5.4) 10^6/ul Hgb (14.0-18.0) g/dl Hct (42-52) % MCV (80-94) fL MCH (27-31) pg MCHC (31-36) g/dl RDW (10.5-15) % Plt Count (150-450) 10^3/ul MPV (7.4-10.4) um3 Neut % (Auto) (38-83) % Lymph % (Auto) (25-47) % [place] % (Auto) (1-9) % Eos % (Auto) (0-6) % Baso % (Auto) (0-2) % Absolute Neuts (auto) (1.5-7.7) 10^3/ul Absolute Lymphs (auto) (1.0-4.8) 10^3/ul Absolute Monos (auto) (0-0.8) 10^3/ul Absolute Eos (auto) (0-0.6) 10^3/ul Absolute Basos (auto) (0-0.2) 10^3/ul Absolute Nucleated RBC 10^3/ul Nucleated RBC % Sodium (133-145) mmol/L Potassium Chloride (101-111) mmol/L Carbon Dioxide (22-32) mmol/L Anion Gap (2-11) mmol/L BUN (6-24) mg/dL Creatinine (0.67-1.17) mg/dL Est GFR ( Amer) (>60) Est GFR (Non-Af Amer) (>60) BUN/Creatinine Ratio (8-20) Glucose (70-100) mg/dL Lactic Acid (0.5-2.0) mmol/L Calcium (8.6-10.3) mg/dL Total Bilirubin (0.2-1.0) mg/dL AST ALT (7-52) U/L Alkaline Phosphatase (34-104) U/L Troponin I (<0.04) ng/mL Total Protein (6.4-8.9) g/dL Albumin (3.2-5.2) g/dL Globulin (2-4) g/dL Albumin/Globulin Ratio (1-3) Urine Color Yellow Urine Appearance Clear Urine pH 7.0 (5-9) Ur Specific [place] 1.013 (1.010-1.030) Urine Protein Negative (Negative) Urine Ketones Negative (Negative) Urine Blood Negative (Negative) Urine Nitrate Negative (Negative) Urine Bilirubin Negative (Negative) Urine Urobilinogen Negative (Negative) Ur Leukocyte Esterase Negative (Negative) Urine Glucose Negative (Negative) Microbiology and Other Data: Microbiology 07/17/17 09:30 CSF Gram Stain (Tube 3) - Final Cerebral Spinal Fluid Assess/Plan/Problems-Billing Assessment: 82 yo M with h/o chronic A. fib (on eliquis), NPH (s/p HOSPITAL INSURANCE CLERK shunt in 2015), cochlear implant , dementia presents with worsening generalized weakness , confusion, intermittent headache and intermittent nausea/abd pain x 1 month - Patient Problems (1) Altered mental state Comment: Encephalopathy and sundowning. Pt's symptoms may be due to advanced dementia, but other etiologies have to be r/o. Appreciate neurology and neurosurery evaluation. Ammonia WNL, TSH and Vit B12 checked within the past month cont nightly low dose Haldol PO HOSPITAL INSURANCE CLERK shunt tap performed today, pressure not increased, lab so far unremarkable, cultures pending (2) Hyponatremia Comment: due to mild dehydration and HCTZ use. Improved. HCTZ stopped at admission (3) Leukocytosis Comment: chronic . No sign of infection. CRP only mildly elevated (4) Type 2 diabetes mellitus Comment: continue Lispro SS.Increase Lantus NPH/metformin on hold (5) S/P HOSPITAL INSURANCE CLERK shunt Comment: s/p tap today, so far results unremarkable. Back on eliquis tonight (6) Atrial fibrillation Comment: chronic, rate controled with lopressor (7) Leg edema Comment: suspect venous stasis Cont CAM badages daily (8) Essential tremor Comment: cont primidone (9) DVT prophylaxis Comment: eliquis (10) DNR (do not resuscitate) (11) HTN (hypertension) Comment: Uncontrolled. Increasing lopressor today Lisinopril started on 07/16/17 Status and Disposition: inpatient. likely d/c to [facility] in 1-2 days
[2017-07-17] MEDS ORDERED: Insulin GLARGINE(*) 1 UNITS UNIT SUBCUT SCH (14:51)
[2017-07-17] MEDS: oxyCODONE/Acetamin 5/325 MG* TAB PO PRN (15:36)
[2017-07-17] MEDS: Haloperidol TAB* 1 MG PO PRN (19:31)
--- NOTE | 2017-07-17 19:43 | PN ---
Progress Note - Progress Note Date of Service: 07/17/17 SOAP: Subjective: []Confused ASked to assess shunt Shunt tap discussed and carried out Objective: []Pressure normal Good distal runoff CSF sample obtained sent for studies Assessment: [] Dementia,not likely related to NPH Plan: []Do not feel shunt is issue at present Recommend placement as planned Prognosis for better neuro functioning limited
[2017-07-18] MEDS: Metoprolol Tartrate TAB* 25 MG PO SCH ×2 (00:01→09:07)
[2017-07-18] MEDS: Tamsulosin CAP* 0.4 MG PO SCH (00:01)
[2017-07-18] MEDS: Apixaban* 5 MG TAB PO SCH ×2 (00:02→09:07)
[2017-07-18] MEDS ORDERED: Haloperidol INJ IV/IM* 5 MG/ML AMP IV ONE (01:32)
[2017-07-18] MEDS: Haloperidol TAB* 1 MG PO ONE ×2 (01:48→06:36)
[2017-07-18] MEDS: Clotrimazole/Betamethasone CREAM* 15 GM TOPICAL SCH ×2 (05:10→09:08)
[2017-07-18] MEDS: Insulin LISPRO* 1 UNITS UNIT SUBCUT SCH ×2 (09:05→12:02)
[2017-07-18] MEDS: Docusate CAP* 100 MG PO SCH ×2 (09:05)
[2017-07-18] MEDS: Finasteride TAB* 5 MG PO SCH (09:06)
[2017-07-18] MEDS: Lisinopril TAB* 10 MG PO SCH (09:06)
[2017-07-18] MEDS: Primidone TAB(*) 50 MG PO SCH (09:06)
[2017-07-18] MEDS: FLUoxetine CAP* 20 MG PO SCH (09:06)
[2017-07-18] MEDS: Senna TAB PO SCH ×2 (09:06)
[2017-07-18 10:09] VITALS: BP 106/62
[2017-07-18] MEDS: oxyCODONE/Acetamin 5/325 MG* TAB PO PRN (12:03)
--- NOTE | 2017-07-18 12:50 | DS ---
CC: Dr. Henderson; Dr. Titus; Dr. Brown; Dr. Villa DISCHARGE SUMMARY: DATE OF ADMISSION: 07/15/17 DATE OF DISCHARGE: 07/18/17 PRIMARY CARE PROVIDER: Dr. Henderson. CHIEF COMPLAINT: Not eating well, not ambulating well, disoriented. PRINCIPAL DIAGNOSES: Severe dementia; Normal Pressure Hydrocephalus but with working ventriculoperitoneal shunt on evaluation. PAST MEDICAL HISTORY: Chronic AFib; hypertension; normal pressure hydrocephalus , status post EARLY CHILDHOOD AIDE CLASSROOM shunt, 2014; urinary incontinence and retention, recently evaluated by urologist; diabetes mellitus, type 2; essential tremor; hyperlipidemia; prior occipital CVA; severe dementia; obstructive sleep apnea; history of abdominal hernia repair; history of cochlear implant; history of cardiac catheterization, 2009; history of varicose vein stripping; diabetic retinopathy in bilateral eyes; 7- mm lung nodule seen 2013. HISTORY OF PRESENT ILLNESS AND HOSPITAL COURSE: Mr. Richards is an 82-year-old male with past medical history as above, but notable for normal pressure hydrocephalus, status post [employer]IL[employer]OOD AIDE CLASSROOM shunt and severe dementia along with chronic atrial fibrillation, on Eliquis. He was brought in by his family after living at home. He was not doing well for the last month. He had been discharged a month prior from [facility] with episode of visual loss of unclear etiology and UTI. He was discharged with physical therapy and VNS services. Ever since, he has not been doing well, getting disoriented and confused, does have a history of baseline dementia. It has been taking 3 people to get him out of bed. On the day of admission, he was found to be hyponatremic with swollen legs and blisters in the emergency room. Sodium was 126. He was admitted given his change in mental status, decreased ability to take care of himself. He was seen by Dr. Titus of Neurosurgery. He evaluated his shunt and did not think it was malfunctioning. Pressures were normal, there was good distal run off. CSF sample was sent for studies. The Gram-stain was negative for neutrophils or organisms. The culture is still pending. He was also evaluated by Neurology, Dr. Malik Brown, who had recommended Dr. Titus's evaluation. General impression will be accelerated decline, the progressive nature of his dementia, and diffuse overall process not amenable to anything clearly treatable. The patient had urinalysis done on admission, which was unremarkable. No obvious effects. He was afebrile throughout the course of admission. He did have a leukocytosis. His sodium has improved from 126 to 129 to 133 the day prior to discharge. His white counts were 11.2, then 15 and 15 for 2 days and the day prior to discharge, but no localized source of infection. He worked with Physical Therapy on 07/16/17, which recommended discharge to acute rehab given decreased dynamic balance and endurance especially with walking. He was able to get in and out of chair without significant assistance and good isometric lower extremity strength. He seemed to be disoriented and per 's report, he seems to be deconditioning with decreased motivation to move at home. The patient will be discharged to [facility]. DISCHARGE MEDICATIONS: Include: 1. Metformin 500 mg p.o. t.i.d. 2. Simvastatin 20 mg p.o. daily. 3. Oxybutynin 10 mg daily. 4. Multivitamin 1 capsule p.o. daily. 5. Humalog insulin 30 units q.a.m., 25 units q.p.m. 6. Hydrochlorothiazide 25 mg daily. 7. Docusate 100 mg q.p.m. 8. Cholecalciferol 1000 units p.o. q.a.m. 9. Tamsulosin 0.4 mg p.o. at bedtime. 10. Primidone 100 mg p.o. q.p.m. and 50 mg p.o. q.a.m. 11. Metoprolol tartrate 25 mg p.o. b.i.d. 12. Finasteride 5 mg p.o. daily. 13. Prozac 20 mg p.o. daily. 14. Apixaban 5 mg p.o. b.i.d. 15. Alprazolam 0.25 mg p.o. q.h.s. DISCHARGE DIET: Carbohydrate consistent, heart healthy. DISCHARGE ACTIVITY LEVEL: Needing physical therapy at acute rehab. FOLLOWUP: Please follow up with primary care physician within 3 to 5 days after discharge from [facility] if the patient is able to return to his previous baseline. TIME SPENT: On discharge 35 minutes. [id number]/[facility] #: [id number] [id number]
== END 2017-07-18 12:45 | DRG 640 ==
LOC: ED 13:01 → MED 17:40
PROVIDERS: ADMIT Internal Medicine; ATTEND Internal Medicine
DX: E87.1 Hypo-osmolality and hyponatremia (principal); G93.40 Encephalopathy, unspecified; G91.2 (Idiopathic) normal pressure hydrocephalus; E11.319 Type 2 diabetes mellitus with unspecified diabetic retinopathy without macular edema; E86.0 Dehydration; F03.90 Unspecified dementia, unspecified severity, without behavioral disturbance, psychotic disturbance, mood disturbance, and anxiety; I48.2 Chronic atrial fibrillation; E78.5 Hyperlipidemia, unspecified; D72.828 Other elevated white blood cell count; G25.0 Essential tremor; Z98.2 Presence of cerebrospinal fluid drainage device; R41.0 Disorientation, unspecified; I10 Essential (primary) hypertension; G47.33 Obstructive sleep apnea (adult) (pediatric); R23.8 Other skin changes; N40.1 Benign prostatic hyperplasia with lower urinary tract symptoms; N39.498 Other specified urinary incontinence; R33.8 Other retention of urine; I87.8 Other specified disorders of veins; K44.9 Diaphragmatic hernia without obstruction or gangrene; Z66 Do not resuscitate; Z86.73 Personal history of transient ischemic attack (TIA), and cerebral infarction without residual deficits; Z79.01 Long term (current) use of anticoagulants; Z79.84 Long term (current) use of oral hypoglycemic drugs; Z79.4 Long term (current) use of insulin; Z79.899 Other long term (current) drug therapy; Z82.3 Family history of stroke; Z82.49 Family history of ischemic heart disease and other diseases of the circulatory system; Z87.891 Personal history of nicotine dependence
CPT/HCPCS: 36415; 70250; 70450; 71010; 72020; 74000; 74174; 80048; 80053; 81003; 82140; 82945; 83605; 84132; 84157; 84484; 85025; 86140; 87070; 87205; 89051; 93005; A9270-GY; J1630; J1644; J2405; Q9967

== ENCOUNTER 2017-08-18 08:14 | Emergency (ER) | payer MEDICARE ==
--- NOTE | 2017-08-18 08:40 | RAD ---
HISTORY: Altered mental status COMPARISONS: July 15, 2017 VIEWS: 1: frontal portable view of the chest at 8:20 AM FINDINGS: LINES AND TUBES: None. CARDIOMEDIASTINAL SILHOUETTE: The cardiomediastinal silhouette is normal for portable technique. PLEURA: The costophrenic angles are sharp. No pleural abnormalities are noted. LUNG PARENCHYMA: The lung volumes are low. The lungs are clear accounting for the phase of respiration. ABDOMEN: The upper abdomen is clear. There is no subphrenic gas. BONES AND SOFT TISSUES: No bone or soft tissue abnormalities are noted. WELT STITCH CLEANER shunt tubing is noted overlying the left hemithorax. IMPRESSION: LOW LUNG VOLUMES. NO ACTIVE CARDIOPULMONARY DISEASE.
[2017-08-18] MEDS ORDERED: LORazepam INJ* 2 MG/ML 1 ML VIAL IM ONE (08:49)
[2017-08-18] MEDS ORDERED: LORazepam INJ* 2 MG/ML 1 ML VIAL ONE (08:51)
[2017-08-18 09:33] LABS: Hematocrit 40 % (42-52); Hemoglobin 12.9 g/dl (14.0-18.0); Mean Corpuscular HGB Conc 33 g/dl (31-36); Mean Corpuscular Hemoglobin 29 pg (27-31); Mean Corpuscular Volume 89 fL (80-94); Mean Platelet Volume 10 um3 (7.4-10.4); Red Blood Count 4.45 10^6/ul (4.0-5.4); Red Cell Distribution Width 14 % (10.5-15); White Blood Count 12.7 10^3/ul (3.5-10.8)
[2017-08-18 09:47] LABS: Albumin 3.2 g/dL (3.2-5.2); BUN/Creatinine Ratio 17.2 (8-20); Calcium 9.3 mg/dL (8.6-10.3); EGFR African American 93.5 (>60); EGFR Non-African American 72.7 (>60); Potassium 3.8 mmol/L (3.5-5.0); Total Bilirubin 0.4 mg/dL (0.2-1.0); Total Protein 6.2 g/dL (6.4-8.9)
[2017-08-18 09:50] LABS: Troponin I 0.02 ng/mL (<0.04)
[2017-08-18 09:58] LABS: Urine Bilirubin Negative (Negative); Urine Glucose 3+(>=500 mg/dL) (Negative); Urine Nitrite Negative (Negative)
[2017-08-18 10:29] LABS: TSH (Thyroid Stimulating Horm) 0.93 mcIU/mL (0.34-5.60)
[2017-08-18 11:36] VITALS: BP 136/81
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
== END 2017-08-18 11:44 | disposition home or self-care (01) ==
LOC: ED 08:14
DX: R45.1 Restlessness and agitation (principal)
CPT/HCPCS: 36415; 71010; 80053; 81003; 84443; 84484; 85025; 93005; 96372; 99284; J2060